=== PATIENT | male | born 1965 | race Caucasian/White ===

== ENCOUNTER 2023-01-25 08:48 | Inpatient (IN) | payer SELFPAY ==
[2023-01-25] VITALS (11 sets, daily range): BP systolic 107–169; BP diastolic 65–89; PULSE 75–89; RESP 12–24; TEMP 36.7–37.6; O2SAT 96–99; BMI 25.7; BMI 25.4
--- NOTE | 2023-01-25 09:01 | DI.RAD.S_ITS ---
PROCEDURE: XR TOE LT MIN 2V INDICATIONS: cellulitis vs. osteo great toe TECHNIQUE: 3 views of the left toe(s) acquired. COMPARISON: None. FINDINGS: Bones: No fractures or dislocations. No suspicious bony lesions. Soft tissues: There is soft tissue swelling at the great toe with soft tissue gas present. IMPRESSION: 1. Great toe cellulitis, possibly with a gas-forming organism. 2. No plain film evidence of osteomyelitis. Comments: Recommend follow-up imaging to ensure that the soft tissue gas does not propagate proximally. Left foot MRI with without contrast may be helpful if suspect acute osteomyelitis. Dictated by: Yosi Rivera M.D. on 01/25/2023 at 9:54 Approved by: Yosi Rivera M.D. on 01/25/2023 at 9:56
--- NOTE | 2023-01-25 09:07 | ED_ITS ---
HPI - Extremity Injury (Lower) General Chief Complaint: Extremity Injury, Lower Stated Complaint: Swollen lt big toe after firewood dropped on it Time Seen by Provider: 01/25/23 09:00 Source: patient Mode of arrival: Ambulatory History of Present Illness HPI Narrative: 58-year-old male former smoker with history of what sounds like newly, and previously undiagnosed or treated diabetes presents with rapidly worsening infection of his left great toe. He was initially injured about 90 days ago when carrying firewood he dropped a piece on his toe and injured it. He had been having some occasional redness and pain but over the past week or so it has rapidly worsened. He now has significantly worse pain, drainage, foul-smelling great toe with purulent drainage, redness of his forefoot. He denies fever but states he has had some chills. He denies any dizziness, weakness or lightheadedness. He denies runny nose, sore throat or cough. Related Data Home Medications Medication Instructions Recorded Confirmed metformin 500 mg tablet 500 mg PO BID 01/25/23 01/25/23 Allergies Allergy/AdvReac Type Severity Reaction Status Date / Time No Known Drug Allergies Allergy Verified 01/25/23 08:58 Review of Systems Review of Systems Narrative: GENERAL: Denies chills, fatigue, malaise, fever, sweats. HEENT: Denies sinus pain, ear pain, sore throat, difficulty swallowing, dizziness. RESPIRATORY: Denies dyspnea, cough, wheezing, hemoptysis, sputum. CARDIOVASCULAR: Denies chest pain, palpitations, orthopnea, edema, GASTROINTESTINAL: Denies nausea, vomiting, abdominal pain, diarrhea, constipation, melena. : Denies dysuria, frequency, incontinence, hematuria, urinary retention. MUSCULOSKELETAL: see HPI SKIN: Denies rash, skin lesions, or other NEUROLOGIC: Denies weakness, headache, numbness, change in speech, confusion, seizures, incoordination. PSYCHIATRIC: No concerning psychosocial issues. 12 point review of systems is negative except for those stated above Patient History Social History Smoking Status: Former smoker Smoking Status: Former smoker alcohol intake frequency: holidays/special occasions only Alcohol type: beer Substance Use Type: marijuana Exam Narrative Exam Narrative: GENERAL: [58] year old patient appears stated age. Well-developed patient, in mild distress. HEAD: Atraumatic. Normocephalic. EYES: Pupils equal round and reactive. Extraocular motions intact. No scleral icterus. No injection or drainage. ENT: Nose without bleeding, purulent drainage. Throat without erythema, tonsillar hypertrophy or exudate. Airway patent. NECK: Trachea midline. Non tender CARDIOVASCULAR: Regular rate and rhythm without murmurs, gallops, or rubs. RESPIRATORY: Clear to auscultation. Breath sounds equal bilaterally. No wheezes, rales, or rhonchi. GASTROINTESTINAL: Abdomen soft, non-tender, nondistended. EXTREMITIES: left great toe significantly erythematous and edematous, few areas of ulceration and skin breakdown with foul-smelling purulent discharge, largely insensate, no bone exposure, erythema and swelling extend into dorsum and forefoot BACK: Nontender without deformity or crepitance. No flank tenderness. NEURO: AOx3. SKIN: No rash or erythema of visible areas Initial Vital Signs Initial Vital Signs: Vital Signs Temperature 98.5 F 01/25/23 08:58 Pulse Rate 87 01/25/23 08:58 Respiratory Rate 24 01/25/23 08:58 Blood Pressure 169/89 H 01/25/23 08:58 Pulse Oximetry 99 01/25/23 08:58 Oxygen Delivery Method Room Air 01/25/23 08:58 Course Orders Ordered: ED Orders 01/25/23 09:01 XR foot LT min 3V Stat 01/25/23 09:05 Wound Culture and Gram Stain Stat 01/25/23 09:10 C-Reactive Protein Quant Stat Complete Blood Count AUTO DIFF Stat Comprehensive Metabolic Panel Stat Erythrocyte Sedimentation Rate Stat Magnesium Stat 01/25/23 10:34 A1C [Hemoglobin A1C% w Est Avg Glu] Urgent 01/25/23 10:35 MRSA (Nasal) PCR Stat Procalcitonin Urgent 01/25/23 10:39 Education, smoking cessation ONGOING 01/25/23 11:00 COVID19 -Nasal RAPID Stat 01/25/23 11:08 Blood Culture Stat 01/26/23 05:00 BMP [Basic Metabolic Panel] DAILY CBC Auto Diff [Complete Blood Count AUTO DIFF] DAILY 01/27/23 05:00 BMP [Basic Metabolic Panel] DAILY CBC Auto Diff [Complete Blood Count AUTO DIFF] DAILY 01/28/23 05:00 BMP [Basic Metabolic Panel] DAILY CBC Auto Diff [Complete Blood Count AUTO DIFF] DAILY Acetaminophen (Acetaminophen 325 Mg Tablet) 650 mg PO Q6H PRN PRN Reason: Fever/Mild Pain (1-3) Sodium Chloride (Normal Saline 0.9%) 1,000 mls @ 100 mls/hr IV CONT HOLLY Stop: 01/25/23 22:44 Piperacillin Sod/Tazobactam (Sod 3.375 gm/ Sodium Chloride) 100 mls @ 25 mls/hr IV Q8H HOLLY Vancomycin HCl/Dextrose (Vancomycin) 2,000 mg in 400 mls @ 200 mls/hr IV NOW ONE Stop: 01/25/23 13:29 Melatonin (Melatonin 3 Mg Tablet) 6 mg PO BEDTIME PRN PRN Reason: Insomnia Naloxone HCl (Naloxone 0.4 Mg/Ml Vial) 0.2 mg IV Q2MIN PRN PRN Reason: Opiate Reversal Oxycodone HCl (Oxycodone Ir 5 Mg Tablet) 5 mg PO Q4HR PRN PRN Reason: Pain, Moderate (4-6) Polyethylene Glycol (Polyethylene Glycol 3350 17 Gm Powd.Pack) 17 gm PO DAILY PRN PRN Reason: Constipation Sennosides (Sennosides 8.6 Mg Tablet) 8.6 mg PO BID PRN PRN Reason: Constipation Vancomycin HCl (Vancomycin Per Pharmacy) 1 request MISC NOW ONE Stop: 01/25/23 10:35 Discontinued Medications Diphtheria/Tetanus/Acell Pertussis (Tet,Diph,Pertuss(Acell),Vac/Pf 0.5 Ml Syringe) 0.5 ml IM .ONCE ONE Stop: 01/25/23 09:10 Last Admin: 01/25/23 09:51 Dose: 0.5 ml Documented By: KARINA Vancomycin HCl/Dextrose (Vancomycin) 2,000 mg in 400 mls @ 200 mls/hr IV Q24H HOLLY Piperacillin Sod/Tazobactam (Sod 4.5 gm/ Sodium Chloride) 100 mls @ 200 mls/hr IV NOW ONE Stop: 01/25/23 10:25 Consultations Consultation #1: discussed with orthopedist, happy with Da, will remain NPO, admission to hospitalist service Consultation #2: discussed with hospitalist, happy to accept on his service Vital Signs Vital signs: Vital Signs - 8 hr 01/25/23 08:58 Temperature 98.5 F Pulse Rate 87 Respiratory Rate 24 Blood Pressure 169/89 H Pulse Oximetry 99 Oxygen Delivery Method Room Air MDM - Extremity Injury (Lower) Lab Data 01/25/23 09:10 01/25/23 09:10 Labs: Lab Results 01/25/23 01/25/23 Range/Units 09:10 09:10 WBC 11.7 H (4.5-11.0) X10^3/uL RBC 4.98 (4.5-5.9) X10^6/uL Hgb 14.3 (13.5-17.5) g/dL Hct 41.7 (41-53) % MCV 83.7 (80-100) fL MCH 28.8 (26-34) PG MCHC 34.4 (30-36) % RDW 12.8 (11.6-14.8) % Plt Count 472 H (150-400) X10^3/uL Neut % (Auto) 76.9 H (50-75) % Lymph % (Auto) 13.1 L (25-40) % [place] % (Auto) 8.5 (3-14) % Eos % (Auto) 0.8 L (2-4) % Baso % (Auto) 0.7 (0-2) % Neut # (Auto) 9000 H (7520-7652) /uL Lymph # (Auto) 1500 (4002-4145) /uL [place] # (Auto) 1000 H (0-900) /uL Eos # (Auto) 100 (0-450) /uL Baso # (Auto) 100 (0-100) /uL ESR 23 H (0-15) MM/HR Sodium 133 L (137-145) mmol/L Potassium 4.3 (3.4-5.1) mmol/L Chloride 94 L (98-107) mmol/L Carbon Dioxide 27 (22-32) mmol/L BUN 13 (9-20) mg/dL Creatinine 0.55 L (0.66-1.25) mg/dL Estimated GFR > 60 (>60) mL/min BUN/Creatinine Ratio 23.6 H (6-22) Glucose 279 H (80-110) mg/dL Calcium 10.8 H (8.4-10.2) mg/dL Magnesium 1.7 (1.6-2.3) mg/dL Total Bilirubin 1.0 (0.2-1.3) mg/dL AST 38 (17-59) IU/L ALT 59 H (<50) IU/L Alkaline Phosphatase 405 H (38-126) U/L C-Reactive Protein 8.6 H (<1.0) mg/dL Total Protein 8.3 H (6.3-8.2) g/dL Albumin 4.4 (3.5-5.0) g/dL Globulin 3.9 (1.7-4.1) g/dL Albumin/Globulin Ratio 1.1 (1.0-2.8) Point of Care Testing Glucose POC 258 MDM Narrative Medical decision making narrative: newly diagnosed diabetic with rapidly worsening left great toe redness, swelling, drainage and foul smell. Inflammatory markers and white blood cell count are elevated, patient is hemodynamically stable without much in the way systemic symptoms. Imaging does suggest an infectious process, possibly from gas forming organism. Given rapid onset patient will require hospitalization for IV antibiotics and possible surgical intervention. Patient has been NPO to foods since last night, NPO to coffee with cream since 0730 this morning. He and family understand diagnosis and plan Discharge Plan Departure Patient Disposition: Admitted As Inpatient Clinical Impression: Abscess of great toe of left foot, Osteomyelitis of great toe of left foot Admit Date/Time: 01/25/23 10:34 Admit Provider: Alcides Higuera
[2023-01-25 09:22] LABS: Add Manual Diff / Slide Review NO; Basophils Absolute Auto 100 /uL (0-100); Basophils Percent Auto 0.7 % (0-2); Eosinophils Absolute Auto 100 /uL (0-450); Eosinophils Percent Auto 0.8 % (2-4); Hematocrit 41.7 % (41-53); Hemoglobin 14.3 g/dL (13.5-17.5); Lymphocytes Absolute Auto 1500 /uL (1100-4500); Lymphocytes Percent Auto 13.1 % (25-40); Mean Corpuscular HGB Conc 34.4 % (30-36); Mean Corpuscular Hemoglobin 28.8 PG (26-34); Mean Corpuscular Volume 83.7 fL (80-100); Monocytes Absolute Auto 1000 /uL (0-900); Monocytes Percent Auto 8.5 % (3-14); Neutrophils Absolute Auto 9000 /uL (1500-7000); Neutrophils Percent Auto 76.9 % (50-75); Platelet Count 472 X10^3/uL (150-400); Red Blood Cell Count 4.98 X10^6/uL (4.5-5.9); Red Cell Distribution Width 12.8 % (11.6-14.8); White Blood Cell Count 11.7 X10^3/uL (4.5-11.0)
[2023-01-25 09:40] LABS: Erythrocyte Sedimentation Rate 23 MM/HR (0-15)
[2023-01-25 09:41] LABS: HEMOLYSIS < 15 (0-50); Potassium 4.3 mmol/L (3.4-5.1)
[2023-01-25 09:44] LABS: Alanine Aminotransferase 59 IU/L (<50); Albumin 4.4 g/dL (3.5-5.0); Albumin Globulin Ratio 1.1 (1.0-2.8); Alkaline Phosphatase 405 U/L (38-126); Aspartate Aminotransferase 38 IU/L (17-59); BUN Creatinine Ratio 23.6 (6-22); Blood Urea Nitrogen 13 mg/dL (9-20); C-Reactive Protein Quant 8.6 mg/dL (<1.0); Calcium 10.8 mg/dL (8.4-10.2); Carbon Dioxide 27 mmol/L (22-32); Chloride 94 mmol/L (98-107); Estimated Glomerular Filt Rate > 60 mL/min (>60); Globulin 3.9 g/dL (1.7-4.1); Glucose 279 mg/dL (80-110); Magnesium 1.7 mg/dL (1.6-2.3); Sodium 133 mmol/L (137-145); Total Protein 8.3 g/dL (6.3-8.2)
[2023-01-25] MEDS: TET,DIPH,PERTUSS(ACELL),VAC/PF 0.5 ML SYRINGE IM (09:51)
--- NOTE | 2023-01-25 11:16 | PC.NURSE ---
Lab is still attempting to get blood cultures. report called to floor. JAY Knapp will hang IV antibiotics
[2023-01-25 11:31] LABS: COVID19 -Nasal RAPID Negative (Negative)
[2023-01-25] MEDS: PIPERACILLIN/TAZO 4.5 GM in SODIUM CHLORIDE 0.9% 100 ML IV (11:43)
[2023-01-25] MEDS: SODIUM CHLORIDE 0.9% 1,000 ML 100 ML IV (11:43)
--- NOTE | 2023-01-25 12:21 | PC.NURSE ---
Addendum entered by Ludmila Martinez R.N. 01/25/23 12:21: LEFT GREAT TOE Original Note:
--- NOTE | 2023-01-25 12:31 | PM.HP.1 ---
History of Present Illness History of Present Illness Chief complaint: Swollen lt big toe after firewood dropped on it Narrative: Jim Blanco is a 58-year-old male with past medical history of poorly controlled type 2 diabetes, hypertension, and former smoker who presents for worsening infection of left great toe. Patient says he dropped a large log on his toe about a month ago and has had worsening infection and drainage in the toe ever since. He notes loss of sensation in his feet. He used to take metformin for his diabetes, and had lab work done last month which showed an A1c of >14% and his PCP put him back on metformin. He has never taken insulin. Patient denies CP, SOB, abd pain, diarrhea, fever, chills or rigors. [facility] Social History household members: significant other Smoking Status: Former smoker alcohol intake: current Meds Home Medications and Allergies Home Medications Medication Instructions Recorded Confirmed Type metformin 500 mg tablet 500 mg PO BID 01/25/23 01/25/23 History Allergies Allergy/AdvReac Type Severity Reaction Status Date / Time No Known Drug Allergies Allergy Verified 01/25/23 08:58 Review of Systems Review of Systems Narrative: All other systems reviewed with the patient and are negative unless otherwise stated. Exam Vital Signs (past 8 hours): - 01/25/23 08:58 01/25/23 11:10 01/25/23 11:25 Temperature 98.5 F 99.7 F H Pulse Rate 87 81 84 Respiratory Rate 24 18 Blood Pressure 169/89 H 149/85 H 155/83 H Pulse Oximetry 99 96 98 Oxygen Delivery Method Room Air Room Air Oxygen Flow Rate 0 Oxygen Delivery Method Room Air Oxygen Flow Rate 0 Narrative Exam Narrative: GEN: no acute distress HEENT: moist mucous membranes, PERRL NECK: trachea midline, no JVD CV: regular rate and rhythm, no murmurs PULM: clear bilaterally ABD: soft, nontender, nondistended, no organomegaly EXT: warm and well perfused with no edema, left great toe with malodorous purulent drainage from wound on medial side NEURO: awake, alert, oriented, no focal deficits Objective Labs 01/25/23 09:10 01/25/23 09:10 Labs: Laboratory Results - last 24 hr 01/25/23 01/25/23 01/25/23 09:10 09:10 10:35 WBC 11.7 H RBC 4.98 Hgb 14.3 Hct 41.7 MCV 83.7 MCH 28.8 MCHC 34.4 RDW 12.8 Plt Count 472 H Neut % (Auto) 76.9 H Lymph % (Auto) 13.[address] [place] % (Auto) 8.5 Eos % (Auto) 0.8 L Baso % (Auto) 0.7 Neut # (Auto) 9000 H Lymph # (Auto) 1500 [place] # (Auto) 1000 H Eos # (Auto) 100 Baso # (Auto) 100 ESR 23 H Sodium 133 L Potassium 4.3 Chloride 94 L Carbon Dioxide 27 BUN 13 Creatinine 0.55 L Estimated GFR > 60 BUN/Creatinine Ratio 23.6 H Glucose 279 H Calcium 10.8 H Magnesium 1.7 Total Bilirubin 1.0 AST 38 ALT 59 H Alkaline Phosphatase 405 H C-Reactive Protein 8.6 H Total Protein 8.3 H Albumin 4.4 Globulin 3.9 Albumin/Globulin Ratio 1.1 Procalcitonin 0.20 SARS-CoV-2 (PCR) 01/25/23 11:00 WBC RBC Hgb Hct MCV MCH MCHC RDW Plt Count Neut % (Auto) Lymph % (Auto) [place] % (Auto) Eos % (Auto) Baso % (Auto) Neut # (Auto) Lymph # (Auto) [place] # (Auto) Eos # (Auto) Baso # (Auto) ESR Sodium Potassium Chloride Carbon Dioxide BUN Creatinine Estimated GFR BUN/Creatinine Ratio Glucose Calcium Magnesium Total Bilirubin AST ALT Alkaline Phosphatase C-Reactive Protein Total Protein Albumin Globulin Albumin/Globulin Ratio Procalcitonin SARS-CoV-2 (PCR) Negative Assessment & Plan Assessment & Plan narrative: # left great toe diabetic foot cellulitis with abscess -foot x-ray shows cellulitis of left great toe with presence of gas -left foot MRI ordered to rule out osteomyelitis -Dr. Porfirio sorensen consulted and will possibly take to OR on 01/25 -keep NPO -continue vanc and Zosyn to cover MRSA and Pseudomonas -follow-up wound cultures # type 2 diabetes -previously poorly controlled as A1c greater than 14% -recheck A1c -hold home metformin -med-dose sliding scale insulin -diabetes education consult # hypertension -no formal diagnosis and patient not on blood pressure medications -continue to monitor and consider starting blood pressure medication on discharge if persistently elevated Code status is full code. COVID negative. DVT prophylaxis with SCDs. Proxy is partner Erinn. I have reviewed home meds and used all available resources to reconcile the home meds. This patient will be admitted as inpatient and will require greater than 2 midnights of hospital time to treat left diabetic toe infection. Quality VTE Deep Vein Thrombosis/Pulmonary Embolism Present on Admission: No
[2023-01-25] MEDS: VANCOMYCIN 2,000 MG/400 ML PIGGYBACK 200 MG IV (12:39)
[2023-01-25] MEDS: PANTOPRAZOLE 40 MG VIAL 20 MG IV (12:39)
[2023-01-25 13:21] LABS: MRSA (Nasal) PCR Not Detected (Not Detect)
--- NOTE | 2023-01-25 13:49 | DI.MRI.S_ITS ---
P tear ROCEDURE: MR FOOT LT WO/W CON INDICATIONS: left diabetic 1st toe infection, possible osteo TECHNIQUE: Noncontrast sagittal T1 spin echo and T2 fast spin echo with fat saturation, long-axis T1 spin echo and T2 fast spin echo with fat saturation; short-axis T1 spin echo, proton density fast spin echo, and T2 fast spin echo with fat saturation through the forefoot. Post-contrast short axis, long axis, and sagittal T1 spin echo with fat saturation through the forefoot. COMPARISON: [facility], CR, XR TOE LT MIN 2V, 01/25/2023, 9:19. FINDINGS: Image quality: Good Bones: At the area of clinical concern at the great toe, there is loss of T1 signal surrounding the interphalangeal joint, with associated enhancement and edema (7/10) extending beyond the T1 signal abnormality Scattered degenerative changes are seen elsewhere. A small, nonaggressive appearing T2 hyperintense lesion is seen at the proximal 5th metatarsal shaft, indeterminate, possibly enchondroma or ganglion. Soft tissues: Soft tissue edema and swelling throughout the foot, particularly at the 1st toe. There is more focal involvement at the plantar/flexor tendons underlying the 1st proximal phalanx and interphalangeal joint. Edema of the plantar musculature could represent myositis vs. diabetic/denervation changes. IMPRESSION: 1st toe osseous and soft tissue edema and enhancement throughout and surrounding the phalanges, compatible with reported infection. Smaller central focus of osteomyelitis is seen at the 1st proximal phalangeal head and base of the distal phalanx surrounding the joint. Dictated by: Philip Koroma M.D. on 01/25/2023 at 15:47 Approved by: Philip Koroma M.D. on 01/25/2023 at 15:54
[2023-01-25] MEDS: INSULIN LISPRO 100 UNIT/ML 3ML VIAL SUBCUT ×2 (15:54→20:21)
--- NOTE | 2023-01-25 16:18 | SUR.OPER ---
Supine on padded OR bed, head on pillow, arms secured on padded arm boards at <90 degrees abduction, legs uncrossed, safety belt at thigh, tape over blanket over lower legs. Left lower leg prepped and draped in field.
--- NOTE | 2023-01-25 18:01 | P.CONS_ITS ---
History of Present Illness Consult details Date Patient Seen: 01/25/23 Time Patient Seen: 17:30 Chief complaint: Swollen lt big toe after firewood dropped on it Narrative: 58-year-old gentleman with a history swelling and drainage to left big toe. Patient states started by him dropping some firewood on it and that seemed cause things get flared up. Started to notice more and more swelling then eventually drainage. Patient is also diabetic. Due to the amount of swelling and purulent drainage patient was seen in the emergency room today and was admitted to the hospitalist for IV antibiotics. Meds Home Medications and Allergies Home Medications Medication Instructions Recorded Confirmed Type metformin 500 mg tablet 500 mg PO BID 01/25/23 01/25/23 History Allergies Allergy/AdvReac Type Severity Reaction Status Date / Time No Known Drug Allergies Allergy Verified 01/25/23 08:58 Exam Vital Signs (past 8 hours): - 01/25/23 11:10 01/25/23 11:25 01/25/23 16:31 Temperature 99.7 F H 99.1 F Pulse Rate 81 84 89 Respiratory Rate 18 18 Blood Pressure 149/85 H 155/83 H 129/78 Pulse Oximetry 96 98 97 Oxygen Delivery Method Room Air Oxygen Flow Rate 0 Oxygen Delivery Method Room Air Oxygen Flow Rate 0 Narrative Exam Narrative: On exam patient has significant swelling in soft tissue damage to the great toe. There is areas of drainage to the lateral aspect of the toe. Some general cellulitis to the foot but the rest of the toe seemed to be free of any swelling drainage or abscess formation. Tenderness to palpation to the great toe and able to express purulence from the lateral aspect of the great toe. Nontender to palpation the 2nd through 5th toes. Objective Labs 01/25/23 09:10 01/25/23 09:10 Labs: Laboratory Results - last 24 hr 01/25/23 01/25/23 01/25/23 09:10 09:10 10:35 WBC 11.7 H RBC 4.98 Hgb 14.3 Hct 41.7 MCV 83.7 MCH 28.8 MCHC 34.4 RDW 12.8 Plt Count 472 H Neut % (Auto) 76.9 H Lymph % (Auto) 13.1 L [place] % (Auto) 8.5 Eos % (Auto) 0.8 L Baso % (Auto) 0.7 Neut # (Auto) 9000 H Lymph # (Auto) 1500 [place] # (Auto) 1000 H Eos # (Auto) 100 Baso # (Auto) 100 ESR 23 H Sodium 133 L Potassium 4.3 Chloride 94 L Carbon Dioxide 27 BUN 13 Creatinine 0.55 L Estimated GFR > 60 BUN/Creatinine Ratio 23.6 H Glucose 279 H Calcium 10.8 H Magnesium 1.7 Total Bilirubin 1.0 AST 38 ALT 59 H Alkaline Phosphatase 405 H C-Reactive Protein 8.6 H Total Protein 8.3 H Albumin 4.4 Globulin 3.9 Albumin/Globulin Ratio 1.1 Procalcitonin 0.20 Nasal Screen MRSA (PCR) SARS-CoV-2 (PCR) 01/25/23 01/25/23 11:00 12:00 WBC RBC Hgb Hct MCV MCH MCHC RDW Plt Count Neut % (Auto) Lymph % (Auto) [place] % (Auto) Eos % (Auto) Baso % (Auto) Neut # (Auto) Lymph # (Auto) [place] # (Auto) Eos # (Auto) Baso # (Auto) ESR Sodium Potassium Chloride Carbon Dioxide BUN Creatinine Estimated GFR BUN/Creatinine Ratio Glucose Calcium Magnesium Total Bilirubin AST ALT Alkaline Phosphatase C-Reactive Protein Total Protein Albumin Globulin Albumin/Globulin Ratio Procalcitonin Nasal Screen MRSA (PCR) Not detected SARS-CoV-2 (PCR) Negative PFSH Social History household members: significant other Tobacco & Substance Use Smoking Status: Former smoker alcohol intake: current Assessment & Plan Assessment & Plan narrative: Patient with a chronic infection involving the left toe. Patient also had an showing signs of some possible osteo changes concerning for osteomyelitis. Due to these findings would recommend an irrigation and debridement of the toe followed by continued IV antibiotics. Did discuss with the patient that if things do not resolve he might need a amputation of the 1st toe. 1st we will see if we can get things to heal with a extensive irrigation and debridement. All of his questions and concerns were answered to his full satisfaction. The risk, benefits, alternatives, possible complications, operative course, and postop outcomes were discussed. Complications including but not limiting to bleeding, infection, fracture, nerve injury, continued pain postoperatively or instability postoperatively were discussed in detail. Medical complications including but not limited to deep venous thrombosis event, anesthesia complications with excessive bleeding, vascular events or cardiac events and other possible complications were discussed in detail. Need for postoperative rehabilitation and anticipated hospital stay and clinical course were discussed in detail. Patient acknowledges understanding and elects to proceed with surgery.
--- NOTE | 2023-01-25 18:01 | PM.PREOP ---
Pre-operative Note Interval Note History & Physical reviewed/Exam performed by Physician: Yes Changes to H&P: No
[2023-01-25] MEDS: BUPIVACAINE 0.25% (PF) 30 ML, EPINEPHrine 0.15 MG INJ (18:50)
--- NOTE | 2023-01-25 19:11 | P.OP_ITS ---
Operative Date/Time/Diagnoses Date of procedure: 01/25/23 Time of procedure: 18:30 Pre-op diagnosis: Left great toe infection Post-op diagnosis: same Procedure & Clinicians Procedure: Irrigation and debridement of a left great toe infection Same procedure as scheduled: Yes Indications: Left great toe infection Surgeon: Davi Monroy Click Yes if Unassisted: Yes Anesthesia Type: MAC +/- Operative Notes Findings: Infection involving the big toe both dorsally and plantarly. Purulent material both dorsal and volar to the bony surface. Necrotic tissue present as well. Mainly involving the distal and proximal phalanx. Closure Type: primary Specimen(s): other (Swab and wound soft tissue sent for cultures and sensitivity) Estimated Blood Loss (mL): 5 Tourniquet time (min): 22 Procedure in detail: Date of service, patient was met in the holding area where his operative site was signed and witnessed by the OR staff. The surgery was once again discussed with the patient and any remaining questions or concerns he had were answered fully. Patient was taken back to the operating theater placed on the operating table in a supine position and great care was taken to ensure that all bony prominences were appropriately padded. Well-padded tourniquet was placed along the calf. Time-out was performed verifying patient's name, procedure, and operative site. The left leg was prepped and draped in the normal sterile fashion. The leg was elevated for exsanguination and the tourniquet was turned up to 250 mmHg. Lateral incision was made starting at the tip of the toe going down to the metatarsal. There was active purulent drainage. This was swabbed and sent for cultures and sensitivities. Deep knife was used to continue sharp dissection down to the bone. Then pickup and tenotomy scissors were used to dissect both dorsally and plantarly of the distal and proximal phalanx. There was more purulent material more so plantarly than dorsally. [place] was then used to debride the necrotic soft tissue both plantarly and dorsally. Fifteen blade was used to excise the skin around the area purulent drainage to get down to more healthy skin tissue. Extensive debridement was used using the rongeur trying to remove as much degenerative tissue as possible. Once we felt like we had an adequate debridement the wound was then copiously irrigated using pulse lavage. This was then followed by bulb syringe lavage. Once we felt like we had adequate cleaned it of the wound bed it was packed with iodoform and then loosely closed. The foot was then cleaned, dried, and dressed and patient was taken to the PACU in stable condition Complications: none Post-operative Condition: stable Disposition: Acute Care Plan for aftercare: Patient will continue with his IV antibiotics. We will need a wound check in 24-48 hours. Depending on how well things are healing and how well he is respo nding to antibiotics might require an additional washout if they are still signs of active infection.
[2023-01-25] MEDS: VANCOMYCIN 1,250 MG/250 ML PIGGYBACK 250 MG IV (20:13)
[2023-01-25] MEDS: DOCUSATE 100 MG CAPSULE PO (20:13)
[2023-01-25] MEDS: LACTATED RINGERS 1,000 ML 125 ML IV (20:14)
[2023-01-25] MEDS: METFORMIN HCL 500 MG TABLET PO (20:14)
[2023-01-26] MEDS: PIPERACILLIN/TAZO 3.375 GM in SODIUM CHLORIDE 0.9% 100 ML IV ×2 (00:31→08:16)
[2023-01-26 04:27] LABS: Labcorp Hemoglobin (Hb) A1c 12.1 % (4.8-5.6)
[2023-01-26] MEDS: VANCOMYCIN 1,250 MG/250 ML PIGGYBACK 250 MG IV (04:36)
[2023-01-26 04:50] VITALS: BP 131/78; PULSE 73; RESP 20; TEMP 37.4; O2SAT 96
[2023-01-26 06:14] LABS: Add Manual Diff / Slide Review NO; Basophils Absolute Auto 0 /uL (0-100); Basophils Percent Auto 0.3 % (0-2); Eosinophils Absolute Auto 100 /uL (0-450); Eosinophils Percent Auto 0.9 % (2-4); Hematocrit 37.4 % (41-53); Hemoglobin 12.5 g/dL (13.5-17.5); Lymphocytes Absolute Auto 1600 /uL (1100-4500); Lymphocytes Percent Auto 13.1 % (25-40); Mean Corpuscular HGB Conc 33.5 % (30-36); Mean Corpuscular Hemoglobin 27.7 PG (26-34); Mean Corpuscular Volume 82.5 fL (80-100); Monocytes Absolute Auto 1300 /uL (0-900); Monocytes Percent Auto 10.5 % (3-14); Neutrophils Absolute Auto 9300 /uL (1500-7000); Neutrophils Percent Auto 75.2 % (50-75); Platelet Count 423 X10^3/uL (150-400); Red Blood Cell Count 4.54 X10^6/uL (4.5-5.9); White Blood Cell Count 12.4 X10^3/uL (4.5-11.0)
[2023-01-26 06:15] LABS: BUN Creatinine Ratio 19.7 (6-22); Blood Urea Nitrogen 13 mg/dL (9-20); Calcium 9.4 mg/dL (8.4-10.2); Carbon Dioxide 26 mmol/L (22-32); Chloride 97 mmol/L (98-107); Estimated Glomerular Filt Rate > 60 mL/min (>60); Glucose 279 mg/dL (80-110); HEMOLYSIS < 15 (0-50); Potassium 4.4 mmol/L (3.4-5.1); Sodium 130 mmol/L (137-145)
[2023-01-26] MEDS: METFORMIN HCL 500 MG TABLET PO (08:17)
[2023-01-26] MEDS: DOCUSATE 100 MG CAPSULE PO ×2 (08:17→21:00)
[2023-01-26] MEDS: INSULIN LISPRO 100 UNIT/ML 3ML VIAL SUBCUT ×4 (08:23→21:01)
--- NOTE | 2023-01-26 09:26 | P.PN_ITS ---
Subjective Subjective Interval history: Patient underwent OR washout of left great toe cellulitis with ortho yesterday. A1c came back at 12%. Court Officer spent lots of time today educating about diabetes management. Wound culture growing Group B strep. Exam Vital Signs (past 8 hours): - 01/26/23 04:50 01/26/23 07:50 Temperature 99.3 F Pulse Rate 73 Respiratory Rate 20 Blood Pressure 131/78 Pulse Oximetry 96 Oxygen Flow Rate 0 0 Oxygen Delivery Method Room Air Oxygen Flow Rate 0 Narrative Exam Narrative: GEN: no acute distress HEENT: moist mucous membranes, PERRL NECK: trachea midline, no JVD CV: regular rate and rhythm, no murmurs PULM: clear bilaterally ABD: soft, nontender, nondistended, no organomegaly EXT: warm and well perfused with no edema, left foot wrapped in post-surgical gauze NEURO: awake, alert, oriented, no focal deficits Objective Labs 01/26/23 05:38 01/26/23 05:38 Labs: Laboratory Results - last 24 hr 01/25/23 01/25/23 01/25/23 09:10 09:10 10:35 WBC RBC Hgb Hct MCV MCH MCHC RDW Plt Count Neut % (Auto) Lymph % (Auto) [place] % (Auto) Eos % (Auto) Baso % (Auto) Neut # (Auto) Lymph # (Auto) [place] # (Auto) Eos # (Auto) Baso # (Auto) ESR 23 H Sodium 133 L Potassium 4.3 Chloride 94 L Carbon Dioxide 27 BUN 13 Creatinine 0.55 L Estimated GFR > 60 BUN/Creatinine Ratio 23.6 H Glucose 279 H Hgb A1c (Ref Lab) Calcium 10.8 H Magnesium 1.7 Total Bilirubin 1.0 AST 38 ALT 59 H Alkaline Phosphatase 405 H C-Reactive Protein 8.6 H Total Protein 8.3 H Albumin 4.4 Globulin 3.9 Albumin/Globulin Ratio 1.1 Procalcitonin 0.20 Nasal Screen MRSA (PCR) SARS-CoV-2 (PCR) 01/25/23 01/25/23 01/25/23 11:00 12:00 12:10 WBC RBC Hgb Hct MCV MCH MCHC RDW Plt Count Neut % (Auto) Lymph % (Auto) [place] % (Auto) Eos % (Auto) Baso % (Auto) Neut # (Auto) Lymph # (Auto) [place] # (Auto) Eos # (Auto) Baso # (Auto) ESR Sodium Potassium Chloride Carbon Dioxide BUN Creatinine Estimated GFR BUN/Creatinine Ratio Glucose Hgb A1c (Ref Lab) 12.1 H Calcium Magnesium Total Bilirubin AST ALT Alkaline Phosphatase C-Reactive Protein Total Protein Albumin Globulin Albumin/Globulin Ratio Procalcitonin Nasal Screen MRSA (PCR) Not detected SARS-CoV-2 (PCR) Negative 01/26/23 01/26/23 05:38 05:38 WBC 12.4 H RBC 4.54 Hgb 12.5 L Hct 37.4 L MCV 82.5 MCH 27.7 MCHC 33.5 RDW 13.0 Plt Count 423 H Neut % (Auto) 75.2 H Lymph % (Auto) 13.1 L [place] % (Auto) 10.5 Eos % (Auto) 0.9 L Baso % (Auto) 0.3 Neut # (Auto) 9300 H Lymph # (Auto) 1600 [place] # (Auto) 1300 H Eos # (Auto) 100 Baso # (Auto) 0 ESR Sodium 130 L Potassium 4.4 Chloride 97 L Carbon Dioxide 26 BUN 13 Creatinine 0.66 Estimated GFR > 60 BUN/Creatinine Ratio 19.7 Glucose 279 H Hgb A1c (Ref Lab) Calcium 9.4 Magnesium Total Bilirubin AST ALT Alkaline Phosphatase C-Reactive Protein Total Protein Albumin Globulin Albumin/Globulin Ratio Procalcitonin Nasal Screen MRSA (PCR) SARS-CoV-2 (PCR) [facility] Social History household members: significant other Smoking Status: Former smoker alcohol intake: current Assessment & Plan Assessment & Plan narrative: # left great toe diabetic foot cellulitis with abscess s/p OR washout on 01/25 -foot x-ray shows cellulitis of left great toe with presence of gas -left foot MRI ordered to rule out osteomyelitis -Dr. Porfirio sorensen consulted and will possibly take to OR on 01/25 -wound culture growing Group B strep, stopped Vanc and changed zosyn to rocephin 2g daily -wound check in 24-48hrs by ortho to determine if back to OR for further debridement # type 2 diabetes -previously poorly controlled as A1c greater than 14% -A1c 12% -hold home metformin -med-dose sliding scale insulin -diabetes education consulted and met with patient -will likely dc home on basal insulin plus metformin Code status is full code. COVID negative. DVT prophylaxis with SCDs. Proxy is partner Erinn. I have reviewed home meds and used all available resources to reconcile the home meds. Dispo: Home in 1-2 days pending wound check and need for repeat for OR washout or not. Quality VTE Deep Vein Thrombosis/Pulmonary Embolism Present on Admission: No
--- NOTE | 2023-01-26 11:50 | CM.DANOTE ---
DCP: Case received, EMR reviewed and met with patient. Introduced self and role. Was able to obtain information to complete DCP assessment. DC assessment completed with information currently available. Patient is a 58 year old male who admitted yesterday morning to the care of the hospitalist team. PCP: Has gone to [facility], in [place]. Payer: uncertain if he is current with [employer]. Counselors are attempting to get in touch with them, does not qualify for Pay4later. He was given a joesph application. Patient came to the hospital via private vehicle secondary to having worsening infection of his left great toe. Notes indicate that about 90 days ago, patient was carrying firewood, dropped a piece on his toe, and injured it. Patient had been having some occasional redness, and pain, and had worsened over the past week. Notes also indicated that the extremity was foul-smelling, with purulent drainage. osteomyletis noted. Patient is poorly controlled type 2 diabetic. He had I&D yesterday by ortho, could potentially need another. At this time, is unclear as to how long that patient will need to be on IV ABO. Met with patient in his room. He is alert and oriented, his foot is percy wrapped. Confirmed that he resides in [place] with partner, Erinn Ayers. He is independent at his baseline. He was working at [employer]. Asked him about a primary provider. He has gone to [facility] in clinic in [place] by [employer]. He has seen someone, but can't remember the name. Asked him about his insurance, he did indicate that his only insurance is [employer]. Discussed his diabetes, asked him if he has a glucometer to check his blood sugars, indicated that he just purchased one. After speaking to patient, noted in collection notes that joesph application was given to patient, for unclear if patient is still covered by his [employer]. He makes too much for [place] insurance. Admission counselors are following up with insurance to see if it is still active. Barrier will be if he is not insured, and needs adjunct faculty for medical terminology IV ABO. P: DCP to continue to follow. Will have to follow closely to see if he will need extended IV ABO secondary to his osteomylitis. He could possibly have another ortho surgery. Nancy Flores RN/Director Advertising Discharge Planning/Care Management Discharge Assessment Start: 01/26/23 11:44 Freq: Status: Active Protocol: Document 01/26/23 11:44 (Rec: 01/26/23 11:46 [id number]) Discharge Planning Assessment Assigned Forensic Locksmith Nancy Flores RN/Director Advertising Advance Directives? No Advance Directives on File No History Provided By Patient,Medical Record Prior Living Arrangements House Household Members significant other Type of transporation used prior to Drives own vehicle admit Independent with ADL's Yes Is patient alert and oriented? Yes Caregiver for Another No Comment Will have to see if he needs adjunct faculty for medical terminology antibiotics. Patient has also been noncompliant with diabetes. Discharge Plan Home Transportation Arrangement Spouse Referrals Initiated Other Additional Comment Will have to see how long he will need IV ABO. Whiteboard Updated in Patient Room with Yes name and ext. # of Forensic Locksmith Review Status In Process Next Review Type Continued Stay Review Document 01/26/23 11:50 VM (Rec: 01/26/23 11:50 [id number]) Discharge Planning Assessment Assigned Forensic Locksmith Nancy Flores RN/Director Advertising Advance Directives? No Advance Directives on File No History Provided By Patient,Medical Record Prior Living Arrangements House Household Members significant other Type of transporation used prior to Drives own vehicle admit Independent with ADL's Yes Is patient alert and oriented? Yes Caregiver for Another No Comment Will have to see if he needs adjunct faculty for medical terminology antibiotics. Patient has also been noncompliant with diabetes. Discharge Plan Home Transportation Arrangement Spouse Referrals Initiated Other Additional Comment Will have to see how long he will need IV ABO. Whiteboard Updated in Patient Room with Yes name and ext. # of Forensic Locksmith Review Status In Process Next Review Type Continued Stay Review
[2023-01-26 12:17] VITALS: BP 129/73; PULSE 77; RESP 16; TEMP 37.1; O2SAT 97
[2023-01-26] MEDS: cefTRIAXone 1,000 MG in SODIUM CHLORIDE 0.9% 100 ML 200 MG IV (13:53)
[2023-01-26] MEDS: LACTATED RINGERS 1,000 ML 125 ML IV ×2 (13:53→22:52)
[2023-01-26 15:24] VITALS: BP 122/69; PULSE 79; RESP 16; TEMP 36.9; O2SAT 98
--- NOTE | 2023-01-26 16:38 | DIET.CONS ---
Dietary Consultation Note Admission Date: 01/25/2023 10:34 Assessment: 58y M admitted for T2DM related left toe infection s/p I&D with ortho referred to nutrition for DM education. Pt is currently underinsured. Pt diagnosed with T2DM several years ago, does not remember A1c, was put on 500mg metformin bid. was able to get FBGs down to 110-120 range, was due for f/u with PCP and missed appointment, ran out of metformin so stopped taking it. Pt recently paid out of pocket to get A1c tested at walk-in clinic (A1c >14) was started on 500mg metformin bid which pt continues to take. Pt started to make some dietary changes, however, pt without guidance so making changes such as switching to SF beverages which help to improve BGs but then other changes such as changing to gluten free bread which do not benefit BGs and may actually worsen numbers. Pt purchased glucometer and is checking FBGs which are consistently in the 250-350 range. Pt has not seen value <200 though he said with the initiation of metformin, they are trending down some. Pts A1c upon admission was 12.1 indicating small improvement in glucose management. 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 Both desire education to better manage pts BGs and avoid further hospitalizations. Food Recall (prior to metformin initiation): B: [employer] lamp food breakfast sandwich with 20oz iced caramel latte L: [employer] nut/cheese/dried fruit blend or a sandwich with glass whole milk Sn: 32oz big gulp slurpee on drive home D: pizza, mac n cheese, pt sometimes grills or cooks but S.O. not a cook so often reliant on ready made meals Sn: chips/crackers before bed Since initiation of metformin, pt has cut out sugar sweetened beverages (latte and slurpee) Pt endorses polydipsia and polyuria, especially nocturnally. Hospitalist considering addition of basal insulin upon d/c for elevated FBGs. Ht: 187.96 cm Wt: 89.9 kg BMI: 25.4 Last BM: 01/26/23 (01/26/23 07:48) MNA: 14 Magan Score: 23 Diet: 01/25/23 Dinner Carbohydrate Consistent Diet Diet Modifications: Carbohydrate level: Small (2 CHO) Reflex DM orders: No Nutrition Percent Meal Consumed 100% 01/26/23 13:00 Percent Meal Consumed 100% 01/26/23 09:01 Labs: RBC 4.54 X10^6/uL (4.5-5.9) 01/26/23 05:38 Hgb 12.5 g/dL (13.5-17.5) L 01/26/23 05:38 Hct 37.4 % (41-53) L 01/26/23 05:38 Creatinine 0.66 mg/dL (0.66-1.25) 01/26/23 05:38 Nutrition Diagnosis: altered nutrition related laboratory values (A1c) r/t endocrine dysfunction, barriers to healthcare and undesirable food choices aeb A1c 12.1, pt admitted for T2DM toe infection requiring I&D, diet recall shows excessive intake sugar sweetened beverages and high intake refined carbohydrates. Interventions: 1. Educated pt on physiology of T2DM including effects of chronically elevated BGs, BGs >200 in relation to unhealing wounds, what A1c is and what it means, strategies to optimize BGs. 2. Reviewed s/sx hyperglycemia. 3. Using handout, educated pt on healthy plate, protein, non-starchy, fat, and carbohydrate containing foods and how pair together for balanced intake. Educated on recommended carbohydrate levels per meals and snacks, sources, and practiced meal planning with pt using familiar foods. 4. Introduced pt to hospital menu with carb levels to assist pt with making supportive choices. Pt asked insightful questions and was able to reflect back to RD important concepts. Pt motivated to make dietary changes and feels relieved he can still eat familiar foods. Pt understands moderating carbohydrates is a correction plan and needs to be sustainable. EER: 45-60g CHO per meal, 30-45g CHO per snack Monitoring/Evaluations: DM educator to f/u with pt for further education on Tuesday morning. Electronically Signed by: Tiffanie Varghese 01/26/23 16:38 Clinical Dietitian [address] [address]
--- NOTE | 2023-01-26 17:29 | PT.IIE ---
Current Diagnoses Type 2 diabetes mellitus with foot ulcer (01/25/23) Surgery Performed Operation Date: 01/25/23 16:30 Actual Procedures p I&D toe(Left) - Davi Monroy MD Physical Therapy Inpatient Evaluation/Re-Eval M1 PT/OT-IP Prior Functional Status Start: 01/26/23 17:17 Freq: NEEDED Status: Active Protocol: Document 01/26/23 17:19 ES (Rec: 01/26/23 17:29 ES [id number]) Medical Review Prior Functional Status Medical History Reviewed Yes Diet/Fluid Consistency Regular Communication WFL Mobility and Gait Indep Activities of Daily Living and IADL's Indep Social History Household Members significant other Living Arrangements House Number of Floors (Floors) One Floor Number of Stairs To Enter/Railing? 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 M2 PT-IP Current Condition Start: 01/26/23 17:17 Freq: NEEDED Status: Active Protocol: Document 01/26/23 17:19 ES (Rec: 01/26/23 17:29 ES [id number]) Physical Therapy Current Condition Current Condition Evaluation Date 01/26/23 Treatment Diagnosis Infection L great toe, s/p I&D Onset Date 01/25/23 M3 PT-IP Subjective Start: 01/26/23 17:17 Freq: NEEDED Status: Active Protocol: Document 01/26/23 17:19 ES (Rec: 01/26/23 17:29 ES [id number]) Subjective Physical Therapy Visit Type Type Initial Evaluation Visit Start Time 14:09 Visit Stop Time 14:40 Total Visit Minutes 31 Physical Therapy Visit Comments Patient Comments Patient alert in bed, SO present. Patient agreeable to work with PT. Stated he bumped his foot on the baseboard of the bed and it was sore but otherwise minimal pain. Therapy Pain Assessment Pain When Pain Assessed During Mobility Pain Present Pain Present Denied Pain M4 PT-IP Mobility and Gait Start: 01/26/23 17:17 Freq: NEEDED Status: Active Protocol: Document 01/26/23 17:19 ES (Rec: 01/26/23 17:29 ES [id number]) PT-Bed Mobility Assessment Supine to Sit Supine to Sit Independent Sit to Supine Sit to Supine Independent Scooting Scooting to Edge of Bed Independent Scooting Up and Down in Bed Independent PT-Transfer Assessment Sit to and From Stand Sit to and from Stand Standby Assistance Equipment Transfer Assistive Device Gait Belt,Front Wheeled Walker Orthotic/Prosthetic Devices or Brace: No Gait Assessment Gait Gait Assistance Required: Contact Guard Assist Distance (Feet) 100 Assistive Devices Assistive Device Gait Belt,Front Wheeled Walker Orthotic/Prosthetic Devices or Brace: No Gait Deviations General Gait Pattern Narrow Based Gait Comments Gait Comments Unsteadiness noted during gait . LOB with turning in doorway, requiring PT assist to correct. PT-Balance Assessment Sitting Balance and Reactions Static Sitting Balance Ability Normal Dynamic Sitting Balance Ability Normal Standing Balance and Reactions Static Standing Balance Ability Good Dynamic Standing Balance Ability Fair Device Used FWW M5 PT-IP Objective Assessments Start: 01/26/23 17:17 Freq: NEEDED Status: Active Protocol: Document 01/26/23 17:19 ES (Rec: 01/26/23 17:29 ES [id number]) Orientation Orientation/Cognition Level of Alertness Alert Orientation Name,Age,Birthday,Month,Date, Year,Day of Week,Place, Situation Language Function Ability No Deficits Noted Safety Awareness Understands Safety Issues Memory Description No Deficits Noted Gross Range of Motion Upper Extremity ROM Assessment Within Functional Limits Lower Extremity ROM Assessment Within Functional Limits Strength Upper Extremity Strength Assessment Within Functional Limits Lower Extremity Strength Assessment Within Functional Limits Coordination Assessment Gross Coordination Gross Coordination WNL Sensation Assessment Sensation Gross Sensation Right LE Impaired,Left LE Impaired Light Touch Impaired Sensation Description Numbness Comments Sensation Comments Impaired sensation B feet. Muscle Tone Muscle Tone WNL Yes M6 PT-IP Treatment Start: 01/26/23 17:17 Freq: NEEDED Status: Active Protocol: Document 01/26/23 17:19 ES (Rec: 01/26/23 17:29 ES [id number]) Physical Therapy Treatment Education Education Provided Safety M7 PT-IP Assessment and Plan Start: 01/26/23 17:17 Freq: NEEDED Status: Active Protocol: Document 01/26/23 17:19 ES (Rec: 01/26/23 17:29 ES [id number]) PT Summary Assessment and Plan Potential Rehabilitation Potential Good Status of Condition at Evaluation Stable Summary Impairments Balance,Sensation,Gait Assessment Summary Patient is a 58 year old male who presents with impaired functional mobility due to the above problems. Primarily, patient demonstrated decreased balance with gait, with one LOB needing PT correction. Patient was otherwise able to perform bed mobility and transfers using FWW without difficulty and tolerated activity without increased pain. He will benefit from further skilled PT to increase safety and independence with ambulation and assess safety with stairs in order to return home with SO. Goals Transfer Goal Independent,Front Wheeled Walker Gait Goal Independent,Front Wheel Walker Gait Distance 150 Other Goals Patient will be able to ascend /descend 5 stairs with single rail and LRAD with SBA and no LOB. Days to Meet Goals 3 Frequency of Treatment Frequency Of Treatment Once a Day Treatment Plan Physical Therapy Treatment Plan Transfer Training,Gait Training,Therapeutic Exercise, Balance Retraining,Post Op Education,Discharge Planning Other Recommendations and Next Treatment Assess safety with ambulation Focus and stairs with LRAD. Weight Bearing Status Weight Bearing Status Weight Bear as Tolerated Recommendations To Nursing Amount of Assist Needed Standby Assistance Discharge Recommendations PT Discharge Recommendations Home with Assistance Transportation Needs at Discharge Private Vehicle
[2023-01-26 20:42] VITALS: BP 127/80; PULSE 82; RESP 17; TEMP 37.6; O2SAT 97
[2023-01-26] MEDS: ACETAMINOPHEN 325 MG TABLET 650 MG PO (21:07)
[2023-01-27 04:01] VITALS: BP 124/77; PULSE 75; RESP 16; TEMP 37.4; O2SAT 98
[2023-01-27 05:45] LABS: Add Manual Diff / Slide Review NO; Basophils Absolute Auto 0 /uL (0-100); Basophils Percent Auto 0.5 % (0-2); Eosinophils Absolute Auto 200 /uL (0-450); Eosinophils Percent Auto 1.8 % (2-4); Hematocrit 38.1 % (41-53); Hemoglobin 12.9 g/dL (13.5-17.5); Lymphocytes Absolute Auto 1700 /uL (1100-4500); Lymphocytes Percent Auto 19.1 % (25-40); Mean Corpuscular HGB Conc 33.9 % (30-36); Mean Corpuscular Hemoglobin 28.1 PG (26-34); Mean Corpuscular Volume 82.8 fL (80-100); Monocytes Absolute Auto 1100 /uL (0-900); Monocytes Percent Auto 12.2 % (3-14); Neutrophils Absolute Auto 6000 /uL (1500-7000); Neutrophils Percent Auto 66.4 % (50-75); Platelet Count 394 X10^3/uL (150-400); Red Cell Distribution Width 12.6 % (11.6-14.8)
[2023-01-27 05:52] LABS: Blood Urea Nitrogen 11 mg/dL (9-20); Calcium 9.4 mg/dL (8.4-10.2); Carbon Dioxide 24 mmol/L (22-32); Chloride 99 mmol/L (98-107); Estimated Glomerular Filt Rate > 60 mL/min (>60); Glucose 213 mg/dL (80-110); HEMOLYSIS < 15 (0-50); Potassium 4.4 mmol/L (3.4-5.1); Sodium 132 mmol/L (137-145)
[2023-01-27 07:55] VITALS: BP 136/87; PULSE 75; RESP 18; TEMP 36.7; O2SAT 98
--- NOTE | 2023-01-27 08:08 | PM.PN.1 ---
Subjective Subjective Interval history: Patient awaiting wound check and dressing change with wound care. He has no complaints. Exam Vital Signs (past 8 hours): - 01/27/23 04:01 01/27/23 07:55 Temperature 99.3 F 98.1 F Pulse Rate 75 75 Respiratory Rate 16 18 Blood Pressure 124/77 136/87 Pulse Oximetry 98 98 Oxygen Flow Rate 0 0 Oxygen Delivery Method Room Air Oxygen Flow Rate 0 Narrative Exam Narrative: GEN: no acute distress HEENT: moist mucous membranes, PERRL NECK: trachea midline, no JVD CV: regular rate and rhythm, no murmurs PULM: clear bilaterally ABD: soft, nontender, nondistended, no organomegaly EXT: warm and well perfused with no edema, left foot wrapped in post-surgical gauze NEURO: awake, alert, oriented, no focal deficits Objective Labs 01/27/23 05:13 01/27/23 05:13 Labs: Laboratory Results - last 24 hr 01/27/23 01/27/23 05:13 05:13 WBC 9.0 RBC 4.60 Hgb 12.9 L Hct 38.1 L MCV 82.8 MCH 28.1 MCHC 33.9 RDW 12.6 Plt Count 394 Neut % (Auto) 66.4 Lymph % (Auto) 19.1 L [place] % (Auto) 12.2 Eos % (Auto) 1.8 L Baso % (Auto) 0.5 Neut # (Auto) 6000 Lymph # (Auto) 1700 [place] # (Auto) 1100 H Eos # (Auto) 200 Baso # (Auto) 0 Sodium 132 L Potassium 4.4 Chloride 99 Carbon Dioxide 24 BUN 11 Creatinine 0.58 L Estimated GFR > 60 BUN/Creatinine Ratio 19.0 Glucose 213 H Calcium 9.4 PFSH Social History household members: significant other Smoking Status: Former smoker alcohol intake: current Assessment & Plan Assessment & Plan narrative: # left great toe diabetic foot cellulitis with abscess s/p OR washout on 01/25 -foot x-ray shows cellulitis of left great toe with presence of gas -left foot MRI showed focal osteomyelitis of 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 Porfirio sorensen consulted and performed washout on 01/25 -wound culture growing Group B strep, stopped Vanc and changed zosyn to rocephin 2g daily -wound care consulted -NPO at midnight in case needs further debridement in OR with Dr. Monroy # type 2 diabetes -previously poorly controlled as A1c greater than 14% -A1c 12% -hold home metformin -med-dose sliding scale insulin -diabetes education consulted and met with patient -will likely dc home on basal insulin plus metformin -setup new PCP for patient Dr. Titus at [facility] for February 21 Code status is full code. COVID negative. DVT prophylaxis with SCDs. Proxy is partner Erinn. I have reviewed home meds and used all available resources to reconcile the home meds. Dispo: Home in 1-2 days pending wound check and need for repeat for OR washout or not. Quality VTE Deep Vein Thrombosis/Pulmonary Embolism Present on Admission: No
[2023-01-27] MEDS: INSULIN LISPRO 100 UNIT/ML 3ML VIAL SUBCUT ×3 (08:10→19:40)
[2023-01-27] MEDS: DOCUSATE 100 MG CAPSULE PO ×2 (08:12→20:25)
[2023-01-27] MEDS: METFORMIN HCL 500 MG TABLET PO ×2 (08:12→20:25)
[2023-01-27 11:45] VITALS: BP 140/79; PULSE 77; RESP 18; TEMP 36.8; O2SAT 98
--- NOTE | 2023-01-27 13:30 | CM.DPC ---
DCP Cont: Per MD, pt making progress but awaiting further Ortho Consult to determine if pt needs additional surgical intervention otherwise pt may be stable for d/c home on oral abx and plans to request a colleague accept pt as a new referral at [facility].
--- NOTE | 2023-01-27 13:34 | CM.DPC ---
DCP Cont: Per MD, pt making progress but awaiting further Ortho Consult to determine if further surgical intervention needed and if pt does not require additional I&D then pt may be stable for d/c home on oral abx and has made referral to colleague at [facility] to accept as new pt as he currently does not have insurance and overqualified for [place]. Per PT, recommending safe d/c home with Sig Other assist. Plan: SW to follow for Ortho recommendations to determine if pt medically stable for d/c today on orals or further medical intervention needed. Pamela Diamond MSW
[2023-01-27] MEDS: cefTRIAXone 2,000 MG in SODIUM CHLORIDE 0.9% 100 ML 200 MG IV (15:08)
[2023-01-27] MEDS: SODIUM CHLORIDE 0.9% 100 ML 21 ML (15:10)
--- NOTE | 2023-01-27 15:25 | PT.IPTN ---
Current Diagnoses Type 2 diabetes mellitus with foot ulcer (01/25/23) Surgery Performed Operation Date: 01/25/23 16:30 Actual Procedures p I&D toe(Left) - Davi Monroy MD Physical Therapy Treatment Note M2 PT-IP Current Condition Start: 01/26/23 17:17 Freq: NEEDED Status: Active Protocol: Document 01/26/23 17:19 ES (Rec: 01/26/23 17:29 ES [id number]) Physical Therapy Current Condition Current Condition Evaluation Date 01/26/23 Treatment Diagnosis Infection L great toe, s/p I&D Onset Date 01/25/23 M3 PT-IP Subjective Start: 01/26/23 17:17 Freq: NEEDED Status: Active Protocol: Document 01/27/23 15:04 KS (Rec: 01/27/23 16:10 KS [id number]) Subjective Physical Therapy Visit Type Type Treatment Note Visit Start Time 15:04 Visit Stop Time 15:25 Total Visit Minutes 21 Number of GRIZZLYMAN Visits 1 Physical Therapy Visit Comments Patient Comments Pt in bed, SO present M4 PT-IP Mobility and Gait Start: 01/26/23 17:17 Freq: NEEDED Status: Active Protocol: Document 01/27/23 15:04 KS (Rec: 01/27/23 16:10 KS [id number]) PT-Bed Mobility Assessment Supine to Sit Supine to Sit Independent Sit to Supine Sit to Supine Independent Scooting Scooting to Edge of Bed Independent Scooting Up and Down in Bed Independent PT-Transfer Assessment Sit to and From Stand Sit to and from Stand Standby Assistance Equipment Transfer Assistive Device Gait Belt,Front Wheeled Walker Orthotic/Prosthetic Devices or Brace: No Gait Assessment Gait Gait Assistance Required: Contact Guard Assist Distance (Feet) 250 Assistive Devices Assistive Device Gait Belt,Front Wheeled Walker Orthotic/Prosthetic Devices or Brace: No Gait Deviations General Gait Pattern Narrow Based Gait Comments Gait Comments Ambulated to stairs and back w / FWW, no LOB. Stair Climbing Assessment Evaluation Level of Assist On Stairs Standby Assistance,1 Person Assistance Devices Stair Climbing Assistive Devices Left Railing Technique/Endurance Stair Climbing Direction Ascend and Descend Stair Climbing Technique Step Over Step Number of Steps Climbed 3 Stair Climbing Set # Repetitions (reps) 2 Comments Stair Climbing Comments Step over step ascending, step to descending w/ L rail. No LOB, SBA. PT-Balance Assessment Sitting Balance and Reactions Static Sitting Balance Ability Normal Dynamic Sitting Balance Ability Normal Standing Balance and Reactions Static Standing Balance Ability Good Dynamic Standing Balance Ability Fair Device Used FWW M5 PT-IP Objective Assessments Start: 01/26/23 17:17 Freq: NEEDED Status: Active Protocol: Document 01/26/23 17:19 ES (Rec: 01/26/23 17:29 ES [id number]) Orientation Orientation/Cognition Level of Alertness Alert Orientation Name,Age,Birthday,Month,Date, Year,Day of Week,Place, Situation Language Function Ability No Deficits Noted Safety Awareness Understands Safety Issues Memory Description No Deficits Noted Gross Range of Motion Upper Extremity ROM Assessment Within Functional Limits Lower Extremity ROM Assessment Within Functional Limits Strength Upper Extremity Strength Assessment Within Functional Limits Lower Extremity Strength Assessment Within Functional Limits Coordination Assessment Gross Coordination Gross Coordination WNL Sensation Assessment Sensation Gross Sensation Right LE Impaired,Left LE Impaired Light Touch Impaired Sensation Description Numbness Comments Sensation Comments Impaired sensation B feet. Muscle Tone Muscle Tone WNL Yes M6 PT-IP Treatment Start: 01/26/23 17:17 Freq: NEEDED Status: Active Protocol: Document 01/27/23 15:04 KS (Rec: 01/27/23 16:10 KS [id number]) Physical Therapy Treatment Education Education Provided Safety M7 PT-IP Assessment and Plan Start: 01/26/23 17:17 Freq: NEEDED Status: Active Protocol: Document 01/27/23 15:04 KS (Rec: 01/27/23 16:10 KS [id number]) PT Summary Assessment and Plan Potential Rehabilitation Potential Good Summary Impairments Balance,Sensation,Gait Progress Towards Goals Progressing Toward Goals Assessment Summary Pt progressing well, Independent for most mobility, SBA to CGA for ambulation w/ FWW and stair training w/ L rail. Pt feels safe while mobilizing and at baseline however may have sx tomorrow, so may need further PT following. Will continue to assess progress. Goals Transfer Goal Independent,Front Wheeled Walker Gait Goal Independent,Front Wheel Walker Gait Distance 150 Other Goals Patient will be able to ascend /descend 5 stairs with single rail and LRAD with SBA and no LOB. Days to Meet Goals 3 Frequency of Treatment Frequency Of Treatment Once a Day Treatment Plan Physical Therapy Treatment Plan Transfer Training,Gait Training,Therapeutic Exercise, Balance Retraining,Post Op Education,Discharge Planning Other Recommendations and Next Treatment Assess safety with ambulation Focus and stairs with LRAD. Weight Bearing Status Weight Bearing Status Weight Bear as Tolerated Recommendations To Nursing Amount of Assist Needed Standby Assistance Discharge Recommendations PT Discharge Recommendations Home with Assistance Transportation Needs at Discharge Private Vehicle
--- NOTE | 2023-01-27 16:09 | P.CONS_ITS ---
History of Present Illness Consult details Date Patient Seen: 01/27/23 Time Patient Seen: 15:30 Chief complaint: Swollen lt big toe after firewood dropped on it Narrative: The patient is a 58-year-old male with new onset type 2 diabetes mellitus who had dropped some firewood on his left great toe then later developed redness, swelling, and purulent drainage. He was admitted to the hospital January 25, 2023 with a diabetic foot infection. A MRI was obtained that showed evidence for cellulitis of the left foot and osteomyelitis of the left great toe proximal ph alanx head and distal phalanx. The patient underwent I&D of the left great toe by Dr. Monroy and was started on ceftriaxone. Cultures grew Staphylococcus group B. Laboratory evaluation revealed leukocytosis upon admission as well as hemoglobin A1c of 12.1. The patient was not previously taking any medications to control his blood sugars. At the time I examination the patient denied any pain or discomfort nor did he have any fever or chills. He is concerned that he may have to go back to the operating room for further surgery. The patient is a nonsmoker and is able to ambulate without difficulty. He does not have any diabetic footwear. Meds Home Medications and Allergies Home Medications Medication Instructions Recorded Confirmed Type metformin 500 mg tablet 500 mg PO BID 01/25/23 01/25/23 History Allergies Allergy/AdvReac Type Severity Reaction Status Date / Time No Known Drug Allergies Allergy Verified 01/25/23 08:58 Review of Systems Constitutional Comments: No recent changes in overall health, weight has been stable Cardiovascular Comments: No chest pain Respiratory Comments: No coughing wheezing or shortness of breath Exam Vital Signs (past 8 hours): - 01/27/23 11:45 Temperature 98.3 F Pulse Rate 77 Respiratory Rate 18 Blood Pressure 140/79 Pulse Oximetry 98 Oxygen Flow Rate 0 Oxygen Delivery Method Room Air Oxygen Flow Rate 0 Narrative Exam Narrative: The patient is a well-developed well-nourished male who is alert and oriented in no apparent distress. Skin Other: Resolving erythema dorsum of left foot and great toe, incision along the medial aspect of the left great toe that extends just proximal to the head of the 1st metatarsal, sutures in place, there is some quarter-inch gauze coming out of the proximal and distal portions of the wound Neuro Other: Decreased lower extremity sensation Extrem Other: 3+ dorsalis pedis and posterior tibial pulses Objective Labs 04/27/23 05:13 01/27/23 05:13 Labs: Laboratory Results - last 24 hr 01/27/23 01/27/23 05:13 05:13 WBC 9.0 RBC 4.60 Hgb 12.9 L Hct 38.1 L MCV 82.8 MCH 28.1 MCHC 33.9 RDW 12.6 Plt Count 394 Neut % (Auto) 66.4 Lymph % (Auto) 19.1 L [place] % (Auto) 12.2 Eos % (Auto) 1.8 L Baso % (Auto) 0.5 Neut # (Auto) 6000 Lymph # (Auto) 1700 [place] # (Auto) 1100 H Eos # (Auto) 200 Baso # (Auto) 0 Sodium 132 L Potassium 4.4 Chloride 99 Carbon Dioxide 24 BUN 11 Creatinine 0.58 L Estimated GFR > 60 BUN/Creatinine Ratio 19.0 Glucose 213 H Calcium 9.4 PFSH Social History household members: significant other Tobacco & Substance Use Smoking Status: Former smoker alcohol intake: current Assessment & Plan Assessment and plan (1) Osteomyelitis of great toe of left foot: Status: Acute (2) Abscess of great toe of left foot: Status: Acute Assessment & Plan narrative: Recommend painting the incision twice a day with Betadine then allow to air dry and wrap with Kerlex, surgical shoe for pressure offloading, consult ID for recommendations regarding type and duration of antibiotic therapy, follow up at wound center for further evaluation and treatment. Time Spent With Patient Time with patient: 30 to 49 minutes with 50% spent counseling/coordinating care
--- NOTE | 2023-01-27 18:20 | PM.PNPO.1 ---
Subjective Subjective Interval history: Patient is postoperative day 2. Of an I and D of the left 1st toe. Patient denies any pain. Denies any fevers or chills. Exam Vital Signs (past 8 hours): - 01/27/23 11:45 Temperature 98.3 F Pulse Rate 77 Respiratory Rate 18 Blood Pressure 140/79 Pulse Oximetry 98 Oxygen Flow Rate 0 Oxygen Delivery Method Room Air Oxygen Flow Rate 0 Narrative Exam Narrative: Dressing was removed today. Decrease in swelling and erythema around the foot and toe. No sign of any purulent drainage. Objective Labs 01/27/23 05:13 01/27/23 05:13 Labs: Laboratory Results - last 24 hr 01/27/23 01/27/23 05:13 05:13 WBC 9.0 RBC 4.60 Hgb 12.9 L Hct 38.1 L MCV 82.8 MCH 28.1 MCHC 33.9 RDW 12.6 Plt Count 394 Neut % (Auto) 66.4 Lymph % (Auto) 19.1 L [place] % (Auto) 12.2 Eos % (Auto) 1.8 L Baso % (Auto) 0.5 Neut # (Auto) 6000 Lymph # (Auto) 1700 [place] # (Auto) 1100 H Eos # (Auto) 200 Baso # (Auto) 0 Sodium 132 L Potassium 4.4 Chloride 99 Carbon Dioxide 24 BUN 11 Creatinine 0.58 L Estimated GFR > 60 BUN/Creatinine Ratio 19.0 Glucose 213 H Calcium 9.4 PFSH Social History household members: significant other Smoking Status: Former smoker alcohol intake: current Assessment & Plan Post-op Postoperative Procedures: Procedures Operation Date: 01/25/23 16:30 Actual Procedure Side Surgeon p I&D toe Left Davi Monroy MD Postoperative day: 2 Postoperative status narrative: Patient is postoperative day 2. To his left toe. Would recommend a repeat irrigation and debridement tomorrow. If things look clean enough then patient can be discharged home the same day. Postoperative plan: other (Repeat I&D Tuesday) Quality VTE Deep Vein Thrombosis/Pulmonary Embolism Present on Admission: No
[2023-01-27] MEDS: MAG HYDROX/ALUM/SIMETH 30 ML UDC PO (20:24)
[2023-01-27] MEDS: ACETAMINOPHEN 325 MG TABLET 650 MG PO (20:25)
[2023-01-27] MEDS: MELATONIN 3 MG TABLET 6 MG PO (20:25)
[2023-01-27 23:33] VITALS: BP 122/69; PULSE 74; RESP 16; TEMP 36.2; O2SAT 98
[2023-01-28] VITALS (10 sets, daily range): BP systolic 121–141; BP diastolic 25–83; PULSE 69–84; RESP 12–20; TEMP 36.2–37.3; O2SAT 96–98; BMI 25.4
[2023-01-28 05:26] LABS: Add Manual Diff / Slide Review NO; Basophils Absolute Auto 100 /uL (0-100); Basophils Percent Auto 0.6 % (0-2); Eosinophils Absolute Auto 200 /uL (0-450); Eosinophils Percent Auto 2.2 % (2-4); Hematocrit 38.9 % (41-53); Hemoglobin 13.3 g/dL (13.5-17.5); Lymphocytes Absolute Auto 2100 /uL (1100-4500); Lymphocytes Percent Auto 23.6 % (25-40); Mean Corpuscular HGB Conc 34.3 % (30-36); Mean Corpuscular Hemoglobin 28.4 PG (26-34); Monocytes Absolute Auto 1000 /uL (0-900); Monocytes Percent Auto 10.6 % (3-14); Neutrophils Absolute Auto 5700 /uL (1500-7000); Platelet Count 454 X10^3/uL (150-400); Red Blood Cell Count 4.68 X10^6/uL (4.5-5.9); Red Cell Distribution Width 12.9 % (11.6-14.8)
[2023-01-28 05:41] LABS: Blood Urea Nitrogen 15 mg/dL (9-20); Calcium 9.9 mg/dL (8.4-10.2); Carbon Dioxide 24 mmol/L (22-32); Chloride 100 mmol/L (98-107); Estimated Glomerular Filt Rate > 60 mL/min (>60); Glucose 229 mg/dL (80-110); HEMOLYSIS < 15 (0-50); Potassium 4.6 mmol/L (3.4-5.1); Sodium 133 mmol/L (137-145)
[2023-01-28] MEDS: INSULIN LISPRO 100 UNIT/ML 3ML VIAL SUBCUT ×4 (08:02→20:01)
--- NOTE | 2023-01-28 09:56 | PC.NURSE ---
Day shift: Pt off unit for procedure at approx 0945.
[2023-01-28] MEDS: LACTATED RINGERS 1,000 ML 42 ML IV ×2 (10:23→11:12)
--- NOTE | 2023-01-28 11:02 | SUR.OPER ---
Supine on padded OR bed, head on pillow, arms secured on padded arm boards at <90 degrees abduction, legs uncrossed, safety belt at waist, tape over blanket over lower right leg , left leg draped free.
[2023-01-28] MEDS: BUPIVACAINE 0.25% (PF) 30 ML, EPINEPHrine 0.15 MG INJ (11:13)
--- NOTE | 2023-01-28 11:28 | PM.OP.1 ---
Operative Date/Time/Diagnoses Date of procedure: 01/28/23 Time of procedure: 11:00 Pre-op diagnosis: Left great toe diabetic infection Post-op diagnosis: same Procedure & Clinicians Procedure: Irrigation and debridement left 1st toe Same procedure as scheduled: Yes (Diabetic toe infection left) Indications: Diabetic toe infection left Surgeon: Davi Monroy Click Yes if Unassisted: Yes Anesthesia Type: MAC +/- Operative Notes Findings: No sign of any purulence. Wound bed much railroad car cleaner compared to his Tuesday. No significant necrotic tissue. Closure Type: primary Estimated Blood Loss (mL): 5 Tourniquet time (min): 13 Procedure in detail: On date of service, patient was met in the holding area where his operative site was signed and witnessed by the OR staff. Surgery was once again discussed with the patient and any remaining questions or concerns that he had were answered fully. Patient was taken back to the operating theater and placed on the operating table in a supine position. Great care was taken to ensure that all bony prominences were appropriately padded and a tourniquet was placed along the left calf. Time-out was performed verifying patient's name, procedure, and operative site. The leg was elevated for exsanguination and the tourniquet was turned up to 250 mmHg. Sutures were removed and previous packing material was removed as well. No sign of any purulent material no sign of any drainage. Wound bed was much railroad car cleaner than it was 72 hours ago. Pulse lavage was used to irrigate 1 L of fluid into the wound. This was then followed by another L with the bulb syringe. Wound bed looked very clean after the irrigation. The wound was then repacked and then closed with nylon. The foot was cleaned, dried, and dressed and patient was taken to the PACU in stable condition. Complications: none Post-operative Condition: stable Disposition: Acute Care Plan for aftercare: Patient can be discharged home once cleared by Medicine.
--- NOTE | 2023-01-28 11:45 | SUR.PHASEI ---
to 216. all belongings in room prior to coming to OR. denies pain, no n\v
--- NOTE | 2023-01-28 12:23 | CM.DPC ---
DCP Planning: Per MD, pt to have another I&D today but per Surgeon can likely d/c after I&D but will now need 6 weeks IV Ceftriaxone 2g Q24 and to have PICC placed today. HAYLIE met bedside with pt and Sig Other and confirmed they are still attempting to get through to [facility] to see about medical coverage and also working through the Exchange to get insurance but no insurance secured yet. Sig Other working diligently each day on insurance. HAYLIE called [facility] and discussed pt situation and faxed referral and they will review to determine possible cost or payment plan etc.. HAYLIE called [facility] [phone] and [place] [facility] [place] to determine if they have any [facility] options if pt does not get insurance. HAYLIE received a call from [facility] for update on pt timeline for d/c as Dr. Barfield had consulted and to get pt scheduled and SW [place] [facility] [place] with update of barriers to discharge and possible d/c this vs Tue pending above. [facility] closed today Tuesday. Plan: HAYLIE to follow closely for return calls from [facility] and [facility] to determine options for discharge for pt needing wound care and 6 weeks IV-Abx and currently no insurance. KAYLEIGH Weston
--- NOTE | 2023-01-28 12:36 | PC.NURSE ---
Day shift: Pt back in room from PACU at approx 1200. Denies any pain. CMS ok. Left foot dressing is CDI. VS WNL. RA 99%.
--- NOTE | 2023-01-28 14:13 | DI.RAD.S_ITS ---
PROCEDURE: XR CHEST FOR PICC 1V INDICATIONS: line placement TECHNIQUE: One view of the chest was acquired. COMPARISON: None. FINDINGS: Surgical changes and devices: Right upper extremity PICC is in place with the distal tip projecting over the lower SVC. Lungs and pleura: Lungs are clear. No pleural effusions or pneumothorax. Mediastinum: Mediastinal contours appear normal. Heart size is normal. Bones and chest wall: No suspicious bony lesions. Overlying soft tissues appear unremarkable. IMPRESSION: Right upper extremity PICC is in place with the distal tip projecting over the lower SVC. No acute cardiopulmonary abnormality seen. Dictated by: Bang Kohli M.D. on 01/28/2023 at 14:49 Approved by: Bang Kohli M.D. on 01/28/2023 at 14:50
--- NOTE | 2023-01-28 14:46 | P.PN_ITS ---
Subjective Subjective Interval history: Patient went back to OR this morning for further debridement. Will require 6 weeks of IV abx per ortho for osteomyelitis. [facility]OOMCORN SEEDER arranging outpatient IV infusions. PICC line ordered. Exam Vital Signs (past 8 hours): - 01/28/23 09:11 01/28/23 10:02 01/28/23 11:23 Temperature 98.0 F 97.9 F 97.2 F L Pulse Rate 75 81 72 Respiratory Rate 16 20 12 Blood Pressure 128/78 131/25 L 124/72 Pulse Oximetry 98 98 97 Oxygen Delivery Method Room Air Room Air Oxygen Flow Rate 01/28/23 11:27 01/28/23 11:33 01/28/23 11:45 Temperature 97.6 F Pulse Rate 75 72 69 Respiratory Rate 12 15 18 Blood Pressure 128/78 135/79 132/80 Pulse Oximetry 98 97 96 Oxygen Delivery Method Room Air Oxygen Flow Rate 0 01/28/23 12:15 01/28/23 13:15 Temperature 97.8 F 97.9 F Pulse Rate 70 72 Respiratory Rate 18 18 Blood Pressure 141/83 H 135/80 Pulse Oximetry 98 97 Oxygen Delivery Method Oxygen Flow Rate 0 0 Oxygen Delivery Method Room Air Oxygen Flow Rate 0 Narrative Exam Narrative: GEN: no acute distress HEENT: moist mucous membranes, PERRL NECK: trachea midline, no JVD CV: regular rate and rhythm, no murmurs PULM: clear bilaterally ABD: soft, nontender, nondistended, no organomegaly EXT: warm and well perfused with no edema, left foot wrapped in post-surgical gauze NEURO: awake, alert, oriented, no focal deficits Objective Labs 01/28/23 05:01 01/28/23 05:01 Labs: Laboratory Results - last 24 hr 01/28/23 01/28/23 05:01 05:01 WBC 9.0 RBC 4.68 Hgb 13.3 L Hct 38.9 L MCV 83.0 MCH 28.4 MCHC 34.3 RDW 12.9 Plt Count 454 H Neut % (Auto) 63.0 Lymph % (Auto) 23.6 L [place] % (Auto) 10.6 Eos % (Auto) 2.2 Baso % (Auto) 0.6 Neut # (Auto) 5700 Lymph # (Auto) 2100 [place] # (Auto) 1000 H Eos # (Auto) 200 Baso # (Auto) 100 Sodium 133 L Potassium 4.6 Chloride 100 Carbon Dioxide 24 BUN 15 Creatinine 0.60 L Estimated GFR > 60 BUN/Creatinine Ratio 25.0 H Glucose 229 H Calcium 9.9 PFSH Social History household members: significant other Smoking Status: Former smoker alcohol intake: current Assessment & Plan Assessment & Plan narrative: # left great toe diabetic foot cellulitis with abscess s/p OR washout on 01/25 -foot x-ray shows cellulitis of left great toe with presence of gas -left foot MRI showed focal osteomyelitis of 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 Porfirio sorensen consulted and performed washout on 01/25 -wound culture growing Group B strep, stopped Vanc and changed zosyn to rocephin 2g daily -wound care consulted, Dr. Barfield saw and rec BID betadine and wrap in kerlix, f/u in wound clinic -took back to OR on 01/28 for further debridement and wound was healing well, no amputation of toe done -spoke with [facility] as patient will need 6 weeks of IV rocephin 2g daily to end on March 08, 2023 -PICC line placed # type 2 diabetes -previously poorly controlled as A1c greater than 14% -A1c 12% -hold home metformin -med-dose sliding scale insulin -diabetes education consulted and met with patient -will likely dc home on basal insulin plus metformin -setup new PCP for patient Dr. Titus at [facility] for February 21 Code status is full code. COVID negative. DVT prophylaxis with SCDs. Proxy is partner Erinn. I have reviewed home meds and used all available resources to reconcile the home meds. Dispo: Home pending setup of outpatient IV abx for 6 weeks. Quality VTE Deep Vein Thrombosis/Pulmonary Embolism Present on Admission: No
--- NOTE | 2023-01-28 15:30 | PT.IPTN ---
Current Diagnoses Type 2 diabetes mellitus with foot ulcer (01/25/23) Cutaneous abscess of left foot (01/25/23) Osteomyelitis, unspecified (01/25/23) Surgery Performed Operation Date: 01/25/23 16:30 Actual Procedures p I&D toe(Left) - Davi Monroy MD Operation Date: 01/28/23 10:30 Actual Procedures p washout 1st toe(Left) - Davi Monroy MD Physical Therapy Treatment Note M2 PT-IP Current Condition Start: 01/26/23 17:17 Freq: NEEDED Status: Active Protocol: Document 01/26/23 17:19 ES (Rec: 01/26/23 17:29 ES [id number]) Physical Therapy Current Condition Current Condition Evaluation Date 01/26/23 Treatment Diagnosis Infection L great toe, s/p I&D Onset Date 01/25/23 M3 PT-IP Subjective Start: 01/26/23 17:17 Freq: NEEDED Status: Active Protocol: Document 01/28/23 15:55 TS (Rec: 01/28/23 16:13 TS [id number]) Subjective Physical Therapy Visit Type Type Treatment Note Visit Start Time 15:30 Visit Stop Time 15:45 Total Visit Minutes 15 Number of MODEL AND MOLD MAKER Visits 2 Physical Therapy Visit Comments Patient Comments Pt reports having surgery for toe this morning, not having much pain, agreeable to PT session. Therapy Pain Assessment Pain When Pain Assessed During Mobility Pain Present Pain Present Denied Pain M4 PT-IP Mobility and Gait Start: 01/26/23 17:17 Freq: NEEDED Status: Active Protocol: Document 01/28/23 15:55 TS (Rec: 01/28/23 16:13 TS [id number]) PT-Bed Mobility Assessment Supine to Sit Supine to Sit Independent Sit to Supine Sit to Supine Independent Scooting Scooting to Edge of Bed Independent Scooting Up and Down in Bed Independent PT-Transfer Assessment Sit to and From Stand Sit to and from Stand Standby Assistance Equipment Transfer Assistive Device None,Gait Belt,Front Wheeled Walker Orthotic/Prosthetic Devices or Brace: No Comments Mobility Comments Pt found resting in bed, agreeable to PT session. Pt is Ind for all bed mobility with BUE support. Sit to stand with no AD SBA. Pt ambulated in hallway ~400 SBA with FWW, demonstrates good upright posture, no buckling or LOB. Stairs x6 with BUE support on handrails, pt demonstrated good carryover from previous session. Pt ambulated in room with no AD ~25' with antalgic gait, reports of no pain in toe. PT was left in bed with call light nearby, spouse in room. Gait Assessment Gait Gait Assistance Required: Contact Guard Assist Distance (Feet) 425 Assistive Devices Assistive Device Gait Belt,Front Wheeled Walker Orthotic/Prosthetic Devices or Brace: No Gait Deviations General Gait Pattern Narrow Based Gait Comments Gait Comments See mobility comments. Stair Climbing Assessment Evaluation Level of Assist On Stairs Standby Assistance,1 Person Assistance Devices Stair Climbing Assistive Devices Left Railing,Right Railing Technique/Endurance Stair Climbing Direction Ascend and Descend Stair Climbing Technique Step Over Step,Step to Step Number of Steps Climbed 6 Stair Climbing Set # Repetitions (reps) 2 Comments Stair Climbing Comments Pt ascended steps step over step, descended step to step. PT-Balance Assessment Sitting Balance and Reactions Static Sitting Balance Ability Normal Dynamic Sitting Balance Ability Normal Standing Balance and Reactions Static Standing Balance Ability Good Dynamic Standing Balance Ability Fair Device Used FWW M5 PT-IP Objective Assessments Start: 01/26/23 17:17 Freq: NEEDED Status: Active Protocol: Document 01/26/23 17:19 ES (Rec: 01/26/23 17:29 ES [id number]) Orientation Orientation/Cognition Level of Alertness Alert Orientation Name,Age,Birthday,Month,Date, Year,Day of Week,Place, Situation Language Function Ability No Deficits Noted Safety Awareness Understands Safety Issues Memory Description No Deficits Noted Gross Range of Motion Upper Extremity ROM Assessment Within Functional Limits Lower Extremity ROM Assessment Within Functional Limits Strength Upper Extremity Strength Assessment Within Functional Limits Lower Extremity Strength Assessment Within Functional Limits Coordination Assessment Gross Coordination Gross Coordination WNL Sensation Assessment Sensation Gross Sensation Right LE Impaired,Left LE Impaired Light Touch Impaired Sensation Description Numbness Comments Sensation Comments Impaired sensation B feet. Muscle Tone Muscle Tone WNL Yes M6 PT-IP Treatment Start: 01/26/23 17:17 Freq: NEEDED Status: Active Protocol: Document 01/28/23 15:55 TS (Rec: 01/28/23 16:13 TS [id number]) Physical Therapy Treatment Education Education Provided Safety M7 PT-IP Assessment and Plan Start: 01/26/23 17:17 Freq: NEEDED Status: Active Protocol: Document 01/28/23 15:55 TS (Rec: 01/28/23 16:13 TS [id number]) PT Summary Assessment and Plan Potential Rehabilitation Potential Good Status of Condition at Evaluation Evolving Summary Impairments Balance,Sensation,Gait Progress Towards Goals Progressing Toward Goals Assessment Summary Pt continues to progress well, increased gait to ~450' in hallway with FWW, ~25' in room with no AD SBA. He performed stairs x6 SBA, demonstrated carryover of sequencing from previous session. He has no c/ o pain or discomfort from surgery in the morning. PT recommends return home with assist from spouse as needed. Goals Transfer Goal Independent,Front Wheeled Walker Gait Goal Independent,Front Wheel Walker Gait Distance 150 Other Goals Patient will be able to ascend /descend 5 stairs with single rail and LRAD with SBA and no LOB. Days to Meet Goals 3 Frequency of Treatment Frequency Of Treatment Once a Day Treatment Plan Physical Therapy Treatment Plan Transfer Training,Gait Training,Therapeutic Exercise, Balance Retraining,Post Op Education,Discharge Planning Other Recommendations and Next Treatment Continue to progress gait and Focus stairs. Trial balance testing. Weight Bearing Status Weight Bearing Status Weight Bear as Tolerated Recommendations To Nursing Amount of Assist Needed Standby Assistance Discharge Recommendations PT Discharge Recommendations Home with Assistance Transportation Needs at Discharge Private Vehicle
[2023-01-28] MEDS: cefTRIAXone 2,000 MG in SODIUM CHLORIDE 0.9% 100 ML 200 MG IV (15:31)
--- NOTE | 2023-01-28 15:31 | DIET.PN1 ---
Dietary Progress Note Assessment: 58M admitted with left Dm foot infection necessitating I&D tx. Reports last HgA1c was >14% and now 12.1%. Main barrier to care has been he is underinsured and is not established with PCP. Working both with hospitalist and SW. Plans for him to d/c on NPH BID, in addition to Metformin. Recent BG range from 170-230mg/dl. Currently on Metformin 500mg BID and Lispro 2-3u per MAR. Likely benefit from a medium or long acting insulin. Plans for d/c tomorrow potentially. Chis is checking BG at home and endorses BG often >200mg/dl. Does not go barefoot. Feels pretty comfortable about nutrition recs since seeing Tiffanie HIGGINS. Received some education from RN on kidney, foot, and overall diabetes care via printed handouts. . Today he and his partner have questions regarding insulin injection, lifestyle changes, and blood sugars vs HgA1c. Ht: 187.96 cm Wt: 89.9 kg BMI: 25.4 Last BM: 01/28/23 (01/28/23 15:00) MNA: 14 Magan Score: 21 Diet: 01/28/23 Lunch Carbohydrate Consistent Diet Diet Modifications: Carbohydrate level: Small (2 CHO) Reflex DM orders: No Nutrition Percent Meal Consumed 100% 01/28/23 07:00 Percent Meal Consumed 100% 01/27/23 18:00 Percent Meal Consumed 0% 01/27/23 10:17 Percent Meal Consumed 100% 01/26/23 18:00 Labs: RBC 4.68 X10^6/uL (4.5-5.9) 01/28/23 05:01 Hgb 13.3 g/dL (13.5-17.5) L 01/28/23 05:01 Hct 38.9 % (41-53) L 01/28/23 05:01 Creatinine 0.60 mg/dL (0.66-1.25) L 01/28/23 05:01 Interventions: Brief nutrition review OP DSME resources Injection technique and education Review of insulin type and resources Foot care review BG log and review of goals provided hgA1c goal and rationale provided Brief DM pathophysiology Monitoring/Evaluations: Consult prn. Provided my card for questions, concerns, or DSME follow-up needs. Electronically Signed by: Suzie Zarco 01/28/23 15:31 Clinical Dietitian, [address] [address]
[2023-01-28] MEDS: DOCUSATE 100 MG CAPSULE PO (20:00)
[2023-01-28] MEDS: MELATONIN 3 MG TABLET 6 MG PO (20:00)
[2023-01-28] MEDS: METFORMIN HCL 500 MG TABLET PO (20:00)
[2023-01-28] MEDS: SODIUM CHLORIDE 0.9% FLUSH 10 ML IV (20:01)
[2023-01-29 05:00] VITALS: BP 118/76; PULSE 78; RESP 14; TEMP 36.7; O2SAT 97
[2023-01-29 05:36] LABS: Hematocrit 38.1 % (41-53); Hemoglobin 13.1 g/dL (13.5-17.5); Mean Corpuscular HGB Conc 34.4 % (30-36); Mean Corpuscular Hemoglobin 28.4 PG (26-34); Mean Corpuscular Volume 82.8 fL (80-100); Platelet Count 469 X10^3/uL (150-400); Red Blood Cell Count 4.61 X10^6/uL (4.5-5.9); Red Cell Distribution Width 12.9 % (11.6-14.8); White Blood Cell Count 8.4 X10^3/uL (4.5-11.0)
[2023-01-29] MEDS: METFORMIN HCL 500 MG TABLET PO ×2 (08:28→17:08)
[2023-01-29] MEDS: DOCUSATE 100 MG CAPSULE PO ×2 (08:28→20:57)
[2023-01-29] MEDS: SODIUM CHLORIDE 0.9% FLUSH 10 ML IV ×3 (08:29→21:03)
[2023-01-29] MEDS: INSULIN LISPRO 100 UNIT/ML 3ML VIAL SUBCUT ×3 (08:31→17:06)
--- NOTE | 2023-01-29 10:06 | PM.PNPO.1 ---
Subjective Subjective Date Patient Seen: 01/29/23 Time Patient Seen: 10:06 Interval history: Pt sitting up comfortably in bed, no complaints, not requiring any narcotic pain medication. Per CM, discharge is pending working out IV abx for the next 6 weeks. Exam Vital Signs (past 8 hours): - 01/29/23 05:00 Temperature 98.1 F Pulse Rate 78 Respiratory Rate 14 Blood Pressure 118/76 Pulse Oximetry 97 Oxygen Flow Rate 0 Oxygen Delivery Method Room Air Oxygen Flow Rate 0 Narrative Exam Narrative: LLE: Wiggles toes without difficulty, good capillary refill. Sensation to touch is intact along foot and tips of all toes with the exception of the great toe. Soft dressing place intraoperatively is CDI. Objective Labs 01/29/23 05:00 01/28/23 05:01 Labs: Laboratory Results - last 24 hr 01/29/23 05:00 WBC 8.4 RBC 4.61 Hgb 13.1 L Hct 38.1 L MCV 82.8 MCH 28.4 MCHC 34.4 RDW 12.9 Plt Count 469 H PFSH Social History household members: significant other Smoking Status: Former smoker alcohol intake: current Assessment & Plan Post-op Assessment and plan (1) Abscess of great toe of left foot: Assessment and Plan narrative: POD# 4 and 1 s/p I&D of left great toe. Disposition per hospitalist and CM teams. Abx per ID. Wound care has also been consulted and has a plan in place. Will sign off from an orthopedic standpoint; please reconsult if necessary. Pt can follow up w/ ortho on an as-needed basis. Postoperative Procedures: Procedures Operation Date: 01/25/23 16:30 Actual Procedure Side Surgeon p I&D toe Left Davi Monroy MD Operation Date: 01/28/23 10:30 Actual Procedure Side Surgeon p washout 1st toe Left Davi Monroy MD Quality VTE Deep Vein Thrombosis/Pulmonary Embolism Present on Admission: No
[2023-01-29] MEDS: ENOXAPARIN 40 MG/0.4 ML SYRINGE SUBCUT (11:17)
[2023-01-29 11:46] VITALS: BP 139/82; PULSE 73; RESP 16; TEMP 36.7; O2SAT 94
[2023-01-29] MEDS: INSULIN NPH 100 UNIT/ML 10ML VIAL 10 UNIT SUBCUT ×2 (11:51→17:05)
--- NOTE | 2023-01-29 13:18 | PT-IP ANOTE ---
Per chart review and discussion with WEATHER TEACHER, patient has been ambulatory with and without AD for community distances without difficulty, and is independent with bed mobility and transfers. No further skilled PT indicated; patient appropriate to d/c with SO assistance when medically cleared. Will d/c PT orders.
[2023-01-29] MEDS: cefTRIAXone 2,000 MG in SODIUM CHLORIDE 0.9% 100 ML 200 MG IV (14:33)
--- NOTE | 2023-01-29 16:22 | P.PN_ITS ---
Subjective Subjective Interval history: Patient has no complaints. Awaiting PSYCHOLOGIST ENGINEERING to arrange outpatient IV abx. Exam Vital Signs (past 8 hours): - 01/29/23 11:46 Temperature 98.0 F Pulse Rate 73 Respiratory Rate 16 Blood Pressure 139/82 Pulse Oximetry 94 Oxygen Delivery Method Room Air Oxygen Flow Rate 0 Narrative Exam Narrative: GEN: no acute distress HEENT: moist mucous membranes, PERRL NECK: trachea midline, no JVD CV: regular rate and rhythm, no murmurs PULM: clear bilaterally ABD: soft, nontender, nondistended, no organomegaly EXT: warm and well perfused with no edema, left foot wrapped in post-surgical gauze NEURO: awake, alert, oriented, no focal deficits Objective Labs 01/29/23 05:00 01/28/23 05:01 Labs: Laboratory Results - last 24 hr 01/29/23 05:00 WBC 8.4 RBC 4.61 Hgb 13.1 L Hct 38.1 L MCV 82.8 MCH 28.4 MCHC 34.4 RDW 12.9 Plt Count 469 H PFSH Social History household members: significant other Smoking Status: Former smoker alcohol intake: current Assessment & Plan Assessment & Plan narrative: # left great toe diabetic foot cellulitis with abscess s/p OR washout on 01/25 -foot x-ray shows cellulitis of left great toe with presence of gas -left foot MRI showed focal osteomyelitis of 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 Porfirio sorensen consulted and performed washout on 01/25 -wound culture growing Group B strep, stopped Vanc and changed zosyn to rocephin 2g daily -wound care consulted, Dr. Barfield saw and rec BID betadine and wrap in kerlix, f/u in wound clinic -took back to OR on 01/28 for further debridement and wound was healing well, no amputation of toe done -spoke with [facility] as patient will need 6 weeks of IV rocephin 2g daily to end on March 08, 2023 -PICC line placed on 01/28 -PSYCHOLOGIST ENGINEERING arranging outpatient IV abx, via home infusion vs infusion center as patient does not currently have insurance # type 2 diabetes -previously poorly controlled as A1c greater than 14% -A1c 12% -continue metformin 500mg BID, start NPH 10 units BID -med-dose sliding scale insulin -diabetes education consulted and met with patient -will likely dc home on NPH insulin plus metformin -setup new PCP for patient Dr. Titus at [facility] for February 21 Code status is full code. COVID negative. DVT prophylaxis with SCDs. Proxy is partner Erinn. I have reviewed home meds and used all available resources to reconcile the home meds. Dispo: Home pending setup of outpatient IV abx for 6 weeks. Quality VTE Deep Vein Thrombosis/Pulmonary Embolism Present on Admission: No
--- NOTE | 2023-01-29 16:42 | CM.DPNOTE ---
Discharge Planning Note: Patient with osteomyelitis of his left toe, s/p surgical debridement. Patient has no insurance and his SO is currently helping him to pursue VA insurance. He will need 6 weeks of IV antibotics and [facility] cannot take until VA insurance kicks in as they do not back reimburse. Plan: On Tuesday follow up with [facility], Sil[facility] BERNSTEIN. Follow up with patient/partner on status of VA insurance progress. Madison Canales RN/DCP
[2023-01-29 20:48] VITALS: BP 111/70; PULSE 81; RESP 17; TEMP 36.4; O2SAT 98
[2023-01-29] MEDS: MELATONIN 3 MG TABLET 6 MG PO (20:57)
[2023-01-30 00:22] VITALS: BP 114/70; PULSE 70; RESP 17; TEMP 36.4; O2SAT 98
[2023-01-30 04:50] VITALS: BP 114/70; PULSE 71; RESP 17; TEMP 36.5; O2SAT 97
[2023-01-30] MEDS: INSULIN NPH 100 UNIT/ML 10ML VIAL 10 UNIT SUBCUT (08:17)
[2023-01-30] MEDS: INSULIN LISPRO 100 UNIT/ML 3ML VIAL SUBCUT ×4 (08:18→21:23)
[2023-01-30] MEDS: ENOXAPARIN 40 MG/0.4 ML SYRINGE SUBCUT (08:25)
[2023-01-30] MEDS: METFORMIN HCL 500 MG TABLET PO ×2 (08:25→16:36)
[2023-01-30] MEDS: SODIUM CHLORIDE 0.9% FLUSH 10 ML IV ×3 (08:28→21:24)
[2023-01-30 11:38] VITALS: BP 110/72; PULSE 81; RESP 18; TEMP 36.6; O2SAT 97
[2023-01-30] MEDS: cefTRIAXone 2,000 MG in SODIUM CHLORIDE 0.9% 100 ML 200 MG IV (14:15)
--- NOTE | 2023-01-30 14:35 | CM.DPC ---
DCP Outpt Infusion Planning; Per MD, pt has PICC placed and remains on IV Ceftriaxone Q24 and cannot switch to orals. Can discharge once outpt infusion set up. Due to today being a Sun, no return call from [facility] or [facility] regarding outpt IV-Abx. Per [facility], they cannot accept pt until he has insurance, they cannot do private pay. HAYLIE met bedside with pt and Sig Other and SO confirms she completed pt's online VA insurance form and submitted but does not know when she will hear back if pt approved for VA coverage. SO trying to look into private insurance but unsure which insurance and overwhelmed and SW suggested calling an health insurance adjuster to discuss pt's situation and direction for the best coverage for pt from a private insurance and SO willing to attempt this tomorrow (Tue) morning. SW discussed that currently without insurance, home infusion is not a possibility. SW discussed pt likely will discharge home tomorrow Mon once outpt infusion clinic secured and may be private pay or sliding fee scale etc depending on the infusion clinic. Since pt lives in [place], SW discussed could be [facility] or [facility] and both pt and SO would be agreeable with either depending if both can accept pt without insurance. SW faxed initial referral to [facility] in hopes they can review in the AM to determine if they can accept and msg already left with [facility]. Plan: SW to follow closely for plan of d/c tomorrow once outpt infusion clinic secured and pt's lack of insurance a barrier and Sig Other working hard to get pt enrolled in insurance but they are agreeable to payment plan if needed. KAYLEIGH Weston
--- NOTE | 2023-01-30 14:38 | P.PN_ITS ---
Subjective Subjective Date Patient Seen: 01/30/23 Interval history: Pt has no new complaints. Endorses numbness in feet (secondary to diabetic neuropathy). Exam Vital Signs (past 8 hours): - 01/30/23 11:38 Temperature 97.8 F Pulse Rate 81 Respiratory Rate 18 Blood Pressure 110/72 Pulse Oximetry 97 Oxygen Flow Rate 0 Oxygen Delivery Method Room Air Oxygen Flow Rate 0 Narrative Exam Narrative: Gen: alert, NAD, talking and resting comfortably Objective Labs 01/29/23 05:00 01/28/23 05:01 PFSH Social History household members: significant other Smoking Status: Former smoker alcohol intake: current Assessment & Plan Assessment & Plan narrative: # left great toe diabetic foot cellulitis with abscess s/p OR washout on 01/25 -foot x-ray shows cellulitis of left great toe with presence of gas -left foot MRI showed focal osteomyelitis of 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 Porfirio sorensen consulted and performed washout on 01/25 -wound culture growing Group B strep, stopped Vanc and changed zosyn to rocephin 2g daily -wound care consulted, Dr. Barfield saw and rec BID betadine and wrap in kerlix, f/u in wound clinic -took back to OR on 01/28 for further debridement and wound was healing well, no amputation of toe done -spoke with [facility] ID as patient will need 6 weeks of IV rocephin 2g daily to end on March 08, 2023 -PICC line placed on 01/28 -CREDIT REPRESENTATIVE arranging outpatient IV abx, via home infusion vs infusion center as patient does not currently have insurance # type 2 diabetes -previously poorly controlled as A1c greater than 14% -A1c 12% -continue metformin 500mg BID, started NPH 10 units BID, changed to lantus pen 25 units HS per pt preference -med-dose sliding scale insulin -diabetes education consulted and met with patient -will likely dc home on Lantus plus metformin -setup new PCP for patient Dr. Titus at [facility] for February 21 Code status is full code. COVID negative. DVT prophylaxis with SCDs. Proxy is partner Erinn. I have reviewed home meds and used all available resources to reconcile the home meds. Dispo: Home pending setup of outpatient IV abx for 6 weeks. Quality VTE Deep Vein Thrombosis/Pulmonary Embolism Present on Admission: No
[2023-01-30 16:04] VITALS: BP 117/78; PULSE 76; RESP 18; TEMP 36.8; O2SAT 97
[2023-01-30] MEDS: INSULIN GLARGINE 100 UNIT/ML 3ML PEN 25 UNIT SUBCUT (21:22)
[2023-01-30] MEDS: DOCUSATE 100 MG CAPSULE PO (21:24)
[2023-01-30 22:00] VITALS: BP 121/66; PULSE 66; RESP 14; TEMP 36.7; O2SAT 98
[2023-01-31] MEDS: ENOXAPARIN 40 MG/0.4 ML SYRINGE SUBCUT (08:26)
[2023-01-31] MEDS: METFORMIN HCL 500 MG TABLET PO (08:28)
[2023-01-31] MEDS: INSULIN LISPRO 100 UNIT/ML 3ML VIAL SUBCUT ×2 (08:34→12:24)
[2023-01-31 10:09] VITALS: BP 114/72; PULSE 80; RESP 20; TEMP 36.6; O2SAT 96
--- NOTE | 2023-01-31 11:09 | P.DS_ITS ---
History of Present Illness History of Present Illness Date Patient Seen: 01/31/23 Time Patient Seen: 10:59 Chief complaint: Swollen lt big toe after firewood dropped on it Narrative: Per admitting provider, Jim Blanco is a 58-year-old male with past medical history of poorly controlled type 2 diabetes, hypertension, and former smoker who presents for worsening infection of left great toe. Patient says he dropped a large log on his toe about a month ago and has had worsening infection and drainage in the toe ever since. He notes loss of sensation in his feet. He used to take metformin for his diabetes, and had lab work done last month which showed an A1c of >14% and his PCP put him back on metformin. He has never taken insulin. Patient denies CP, SOB, abd pain, diarrhea, fever, chills or rigors. Discharge Providers Provider Date of admission: 01/25/23 10:34 Discharge Date: 01/31/23 Primary care physician: Doctor Juan MD Consults: 01/25/23 15:45 Consult to Dietitian, Adult Routine Comment: Reason For Exam: A1c >14% 01/25/23 19:01 Consult to Discharge Planning Routine Comment: Consult to Physical Therapy Evaluate & Treat Comment: Physician Instructions: Evaluate and Treat 01/25/23 19:03 Consult to Wound Care Routine Comment: Consulting Provider: [facility] 01/25/23 19:06 Consult to Inpatient Wound Care Nurse Routine Comment: Reason for consultation: Left big toe infection 01/28/23 11:24 Consult to Discharge Planning Routine Comment: Consult to Physical Therapy Evaluate & Treat Comment: Physician Instructions: Evaluate and Treat Discharge provider: Hung Hill DO Summary Hospital Course Discharge Diagnosis: # left great toe diabetic foot cellulitis with abscess s/p OR washout on 01/25 # type 2 diabetes Hospital Course: This is a 58 year old male with poorly controlled DM who was admitted to the hospital with a 1st toe cellulitis, with abscess and corresponding osteomyelitis. Orthopedics perfromed initial I&D on 01/25 with takeback on 01/28. Orthopedics signed off a few days later with no further recommendations and outpatient follow up only as needed. Wound clinic evaluated the patient and recommended BID betadine and ambrosio/kerlix wrap and outpatient wound clinic follow up, which was set up. Infectious disease was consulted over the phone, recommended IV ceftriaxone for 6 weeks to end on 03/08/23. However, patient's social determinants of health are complicated by current lack of insurance. He w as unable to get home infusion therapy due to lack of insurance, and infusion clinic cost was around $500 per visit ($3500 per weak with total cost around $18,000). After careful discussion of the risks and benefits of IV therapy or discharge home with oral antibiotics, patient and spouse wished to discharge home on orals given prohibitive cost of IV therapy. We discussed risks including worsening infection given usual care is recommended to be IV therapy, with possibility for higher risk of amputation should the infection worsen. We also discussed there are some studies recently (SANDIE,2019) that suggest that oral antibiotics in appropriate patients can be non-inferior though this is not cur rently considered the standard of care. Based on his cultures with group B strep, amoxicillin 500 mg TID was prescribed at discharge. An alternative may be to have PICC line placed and start antibiotics once insurance is active (patient and spouse actively searching via private pay and VA benefits currently. His blood sugars were much improved with initiation of 25 U of lantus, and I recommend continuing this at discharge, along with his metformin. He was set up with PCP visit in about 3 weeks. Referral was made to infectious disease as well by one of the hospitalist providers. Care management assisted with getting him a wound care appointment as well to [facility]. Time Spent with Patient Time spent: Greater than 30 minutes Exam Vital Signs (past 8 hours): - 01/31/23 10:09 Temperature 98 F Pulse Rate 80 Respiratory Rate 20 Blood Pressure 114/72 Pulse Oximetry 96 Oxygen Flow Rate 0 Oxygen Delivery Method Room Air Oxygen Flow Rate 0 Narrative Exam Narrative: GEN: no acute distress HEENT: moist mucous membranes, PERRL NECK: trachea midline, no JVD CV: regular rate and rhythm, no murmurs PULM: clear bilaterally ABD: soft, nontender, nondistended, no organomegaly EXT: warm and well perfused with no edema, left foot wrapped in post-surgical ga uze with slight betadine staining on the toe. NEURO: awake, alert, oriented, no focal deficits Objective Labs 01/29/23 05:00 01/28/23 05:01 [facility] Social History household members: significant other Smoking Status: Former smoker alcohol intake: current Discharge Plan Discharge Plan Patient Disposition: Home Provider Discharge Comment: You were admitted to the hospital with an infection in your left foot, this improved with surgical debridement and antibiotics. We discussed risks and benefits of IV vs oral antibiotics, and you elected for discharge home on oral therapy given cost concerns at this time. Watch for worsening swelling of your joint, worsening wound, or fever at home. Please return to the ER if you are concerned. Sent insulin prescription to pharmacy as well. Continue to monitor blood sugars at least 3x a day for now, if glucose consistently good can reduce to in the morning. PCP follow up scheduled as noted below with Dr. Hoffman on 02/21, please bring a log of blood sugars to help adjust insulin therapies. Please reach out to the infectious disease clinic to confirm referral and follow up appointment. Continue dressing changes twice daily for now, would reach out to new PCP office to see about availability for same day or walk in appointments for suture removal in 10-14 days. Discharge orders & Medications Prescriptions: New insulin glargine [Lantus Solostar U-100 Insulin] 100 unit/mL (3 mL) Insulin Pen 25 unit SUBCUT BEDTIME 90 Days Qty: 24 0RF (DME) pen needle, diabetic [Pen Needle] 31 gauge x 3/16 needle See Rx Instructions .Route Qty: 100 0RF Rx Instructions: For use with insulin ped, once daily amoxicillin 500 mg tablet 500 mg PO TID 36 Days Qty: 108 0RF Continued metformin 500 mg tablet 500 mg PO BID Patient Comments: take 1 tablet by mouth every morning and evening with meals Medication counseling provided by Pharmacist: Yes Follow up/Referrals: Isabell Danielson MD [Non-Staff] - Fransico Hoffman [Non-Staff] - 02/21/23 4:40 pm (Appt:02/21 @ 4:40 (check in @ 4:25) with Dr Hoffman @ [facility] [place] [facility] [place] ) Miscellaneous,DoctorMD [Primary Care Provider] - Diet/Activity/Treatments Diet: Diet as Tolerated Activity: As tolerated Skin/Wound/Dressing Care Report to your healthcare provider any signs of infection, such as:: chills, fever, increased pain, unusual drainage and unusual redness Dressing: betadine twice daily, with gauze and kerlix. Visit Report/Discharge Packet Instructions: How to Take Care of Your Feet If You Have Diabetes, Complications of Type 2 Diabetes, Learn Your Diabetic ABCs, Type 2 Diabetes, Diabetes and Foot Care, Diabetic Nephropathy Stand Alone Forms: Patient Portal/API, Stroke Signs & Symptoms Discharge Data Primary Care Provider: Miscellaneous,Doctor Discharges patient from system. Discharge Date/Time: 01/31/23 15:00 Quality VTE Deep Vein Thrombosis/Pulmonary Embolism Present on Admission: No
--- NOTE | 2023-01-31 12:49 | CM.DPC ---
DCP Discharge Home SW spoke to RN at [facility] regarding pt's lack of insurance and need for Q24 IV-Abx and tentative out of pocket cost would be $335 nursing time, $120 for saline, plus cost of IV-Abx and then lab draws as needed. SW left ms for [facility] requesting call back. HAYLIE updated MD who also then spoke to pt and Sig Other bedside and pt decision is to d/c on oral abx and get on insurance and then follow up with Ortho, Wound Clinic and ID MD to get on IV-Abx as needed. Pt aware of the risks but cannot afford out of pocket expenses at this time. HAYLIE called [facility] health program analyst and updated and request they keep pt's information for likely future need. HAYLIE called Andie at [facility] with update on d/c plan for today and likely need for appointment to be scheduled for pt after d/c and requested she call pt and Sig Other to determine if pt willing to schedule yet at this time without insurance. Andie kindly agreed. Plan: Patient to d/c home on orals while working hard to get medical insurance and will f/u with Ortho, [facility], and ID MD Dr. Danielson after discharge today. Pt has the [facility] Application, Sig Other submitted pt's VA online application, and following up with director insurance. KAYLEIGH Weston
[2023-01-31] MEDS: cefTRIAXone 2,000 MG in SODIUM CHLORIDE 0.9% 100 ML 200 MG IV (13:59)
--- NOTE | 2023-01-31 15:19 | PC.NURSE ---
Addendum entered by Kimberly Rosen R.N. 01/31/23 15:20: Picc line taken out by Student Registered Nurse, he tolerated this well and cath tip was intact at the bottom of the line. Original Note: Patients insulin pen gone over with patient and dressing change gone over with . Patient discharged around 1500 to home.
== END 2023-01-31 15:00 | disposition home or self-care (01) | DRG 623 ==
LOC: ED 09:00 → AC 10:35
PROVIDERS: Orthopaedic Surgery; Admitting Provider Student in an Organized Health Care Education/Training Program; Emergency Provider Emergency Medicine; Referring Provider Emergency Medicine; Visit Provider Student in an Organized Health Care Education/Training Program
PROC: 0JBR0ZZ Excision of Left Foot Subcutaneous Tissue and Fascia, Open Approach (ICD-10-PCS; principal; 2023-01-25 16:30)
PROC: 0JDR0ZZ Extraction of Left Foot Subcutaneous Tissue and Fascia, Open Approach (ICD-10-PCS; principal; 2023-01-28 10:30)
DX: E11.628 Type 2 diabetes mellitus with other skin complications (principal); E11.52 Type 2 diabetes mellitus with diabetic peripheral angiopathy with gangrene; L02.612 Cutaneous abscess of left foot; I96 Gangrene, not elsewhere classified; M86.9 Osteomyelitis, unspecified; B95.1 Streptococcus, group B, as the cause of diseases classified elsewhere; E11.69 Type 2 diabetes mellitus with other specified complication; L03.032 Cellulitis of left toe; Z20.822 Contact with and (suspected) exposure to COVID-19; Z87.891 Personal history of nicotine dependence; Z79.84 Long term (current) use of oral hypoglycemic drugs; Z23 Encounter for immunization
CPT/HCPCS: 36415; 36573; 73630; 73720; 80048; 80053; 82962; 83036; 83735; 84145; 85025; 85027; 85651; 86140; 87040; 87070; 87075; 87077; 87147; 87205; 87635; 87797; 90471; 97116; 97161; 99232; 99284; C9803; 90715; C9113; J0171; J0696; J1642; J1650; J1815; J2250; J2543; J2704; J3010

== ENCOUNTER → 2023-02-05 12:39 | Outpatient (CLI) | payer OTHER, MEDICAID, SELFPAY ==
[2023-01-25 10:41] VITALS: BMI 25.4
[2023-02-05 14:15] LABS: Clostridium Difficile Tox PCR Negative for C. diff (Negative)
== END ==
PROVIDERS: PCP Family Medicine; Referring Provider Internal Medicine Infectious Disease; Visit Provider Internal Medicine Infectious Disease
DX: R19.7 Diarrhea, unspecified (principal)
CPT/HCPCS: 87493

== ENCOUNTER → 2023-02-07 12:39 | Outpatient (CLI) | payer OTHER, MEDICAID, SELFPAY ==
[2023-01-25 10:41] VITALS: BMI 25.4
[2023-02-07 14:09] LABS: Add Manual Diff / Slide Review NO; Basophils Absolute Auto 100 /uL (0-100); Basophils Percent Auto 0.9 % (0-2); Eosinophils Absolute Auto 100 /uL (0-450); Hematocrit 42.5 % (41-53); Hemoglobin 14.6 g/dL (13.5-17.5); Lymphocytes Absolute Auto 2400 /uL (1100-4500); Lymphocytes Percent Auto 25.7 % (25-40); Mean Corpuscular HGB Conc 34.3 % (30-36); Mean Corpuscular Volume 81.6 fL (80-100); Monocytes Absolute Auto 700 /uL (0-900); Monocytes Percent Auto 7.5 % (3-14); Neutrophils Absolute Auto 6100 /uL (1500-7000); Neutrophils Percent Auto 64.9 % (50-75); Platelet Count 455 X10^3/uL (150-400); Red Cell Distribution Width 13.2 % (11.6-14.8); White Blood Cell Count 9.4 X10^3/uL (4.5-11.0)
[2023-02-07 14:28] LABS: Alanine Aminotransferase 31 IU/L (<50); Albumin 4.2 g/dL (3.5-5.0); Albumin Globulin Ratio 1.4 (1.0-2.8); Alkaline Phosphatase 223 U/L (38-126); Aspartate Aminotransferase 25 IU/L (17-59); BUN Creatinine Ratio 19.6 (6-22); Bilirubin Total 0.5 mg/dL (0.2-1.3); Blood Urea Nitrogen 18 mg/dL (9-20); C-Reactive Protein Quant 0.6 mg/dL (<1.0); Calcium 10.6 mg/dL (8.4-10.2); Carbon Dioxide 22 mmol/L (22-32); Chloride 100 mmol/L (98-107); Estimated Glomerular Filt Rate > 60 mL/min (>60); Glucose 150 mg/dL (80-110); HEMOLYSIS < 15 (0-50); Potassium 5.1 mmol/L (3.4-5.1); Sodium 131 mmol/L (137-145); Total Protein 7.2 g/dL (6.3-8.2)
== END ==
PROVIDERS: PCP Family Medicine; Referring Provider Internal Medicine Infectious Disease; Visit Provider Internal Medicine Infectious Disease
DX: M86.9 Osteomyelitis, unspecified (principal)
CPT/HCPCS: 36415; 80053; 85025; 86140; 87040

== ENCOUNTER 2023-02-11 11:37 | Day surgery (SDC) | payer OTHER, MEDICAID, SELFPAY ==
[2023-01-25 10:41] VITALS: BMI 25.4
[2023-02-10 14:20] VITALS: BMI 25.0
--- NOTE | 2023-02-11 | PATH_ITS ---
[facility] Accession Number: [id number] No. of containers..01 Tissue . 01 Material submitted: . toe - LEFT GREAT TOE . 01 Diagnosis: Left Great Toe, Amputation: Skin and soft tissue with ulcer. Underlying bone with evidence of acute osteomyelitis. Soft tissue and articular surface margins are involved by acute inflammation. MRV 02/16/2023 1523 Local . 01 Electronically signed: . Bhakti Frank MD, Pathologist NPI- [id number] . 01 Gross description: . The specimen is received in formalin labeled with the patient's name, , and left great toe, and consists of a presumably disarticulated digit measuring 4.2 cm in length by 3.5 cm in average diameter. The cutaneous surface is ibarra, wrinkled, and significant for a large ulcerated lesion on the medial aspect with soft tissue visible at the base of the ulceration and measuring 2.5 x 1.4 cm. The lesion grossly approaches the soft tissue margin. The remaining cutaneous surface has a friable cutaneous surface and a ibarra thickened nail bed. The soft tissue margin is inked blue while the possible articular surface is inked orange. Sectioning reveals yellow to ibarra soft tissue with hard friable osseous tissue that is an easy dissection with a scalpel. Gut Dropper sections are submitted as follows: A1-A2: Soft tissue margin en face. A3: Possible articular surface en face. A4: Partial cross-section to include lesion and underlying bone. Submitted for decalcification. ([id number]) /MRV 02/15/2023 1853 Local . 01 Pathologist provided ICD-10: M86.9, E11.628 . 01 CPT . 542011, 287418 Specimen Comment: A courtesy copy of this report has been sent to [phone] Performed at: 01 [facility] [address] [facility], [place], [place] [id number] MD Gary Dunn MD Phone: [phone]
--- NOTE | 2023-02-11 | DI.RAD.S_ITS ---
PROCEDURE: XR TOE LT MIN 2V INDICATIONS: BIG TOE AMPUTATION TECHNIQUE: Single intraoperative fluoroscopic views of the 1st toe(s) acquired. COMPARISON: [facility], CR, XR FOOT 3 VIEWS WEIGHT BEARING LEFT, 02/10/2023, 10:08. [facility], CR, XR TOE LT MIN 2V, 01/25/2023, 9:19. FINDINGS: Intraoperative fluoroscopic image of great toe shows amputation of great toe at the level of mid 1st proximal phalangeal shaft. IMPRESSION: Fluoro guidance was provided intraoperatively for amputation of great toe as above. Dictated by: Francisco Xie M.D. on 02/11/2023 at 16:14 Approved by: Francisco Xie M.D. on 02/11/2023 at 16:15
[2023-02-11 12:06] VITALS: BMI 25.0
[2023-02-11 12:13] VITALS: BP 119/70; PULSE 77; RESP 17; TEMP 36.3; O2SAT 99
[2023-02-11] MEDS: LACTATED RINGERS 1,000 ML 42 ML IV (12:22)
[2023-02-11] MEDS: ACETAMINOPHEN 325 MG TABLET 975 MG PO (12:22)
--- NOTE | 2023-02-11 14:21 | PM.PREOP ---
Pre-operative Note Interval Note History & Physical reviewed/Exam performed by Physician: Yes Changes to H&P: No
[2023-02-11] MEDS: BUPIVACAINE 0.25% (PF) 30 ML, EPINEPHrine 0.15 MG INJ (15:19)
--- NOTE | 2023-02-11 15:31 | SUR.OPER ---
Supine on padded OR bed, head on pillow, arms secured on padded arm boards at <90 degrees abduction, legs uncrossed, safety belt at thigh, tape over blanket over lower legs.
[2023-02-11 15:53] VITALS: BP 121/81; PULSE 76; RESP 12; TEMP 36.1; O2SAT 97
[2023-02-11 15:58] VITALS: BP 123/83; PULSE 75; RESP 12; O2SAT 98
[2023-02-11 16:03] VITALS: BP 129/88; PULSE 74; RESP 12; O2SAT 98
[2023-02-11 16:08] VITALS: BP 126/87; PULSE 72; RESP 14; O2SAT 98
[2023-02-11 16:13] VITALS: BP 135/88; PULSE 69; RESP 12; O2SAT 98
--- NOTE | 2023-02-11 18:39 | P.OP_ITS ---
Operative Date/Time/Diagnoses Date of procedure: 02/11/23 Time of procedure: 18:39 Pre-op diagnosis: Diabetic infection left foot Hallux osteomyelitis left great toe Post-op diagnosis: same Procedure & Clinicians Procedure: Partial amputation left great toe CPT code 76130 - TA Manual preparation and insertion of the drug delivery devices CPT code 52048 This procedure was performed with a modifier #58 for a more extensive procedure. Due to ongoing infection and necrosis patient required a partial toe amputation Same procedure as scheduled: Yes Indications: The patient is a 58-year-old male with a left great toe diabetic infection osteomyelitis and osteonecrosis. He is failed 2 irrigation debridements by another orthopedist. He was seen by infectious disease indicated for IV antibiotics but has been unable to obtain these. He has been on oral antibiotics. His progressive necrosis and osteonecrosis. He is indicated for more extensive procedure for partial left great toe amputation. The risks and benefits of the procedure have been discussed with the patient and given the opportunity to ask questions. The risks of surgery include but are not limited to infection, malunion, nonunion, persistence of pain, damage to nerves and blood vessels, posttraumatic arthritis, DVT, PE, cardiopulmonary complications and . The patient expressed a thorough understanding of the risks and benefits of surgery and has elected to proceed. Consent was signed. Surgeon: Viki iLcona Click Yes if Unassisted: Yes Anesthesia Type: General and Local Operative Notes Findings: Osteonecrosis, necrotic soft tissue and flexor hallucis longus. Exposure of the distal interphalangeal joint with appearance of chronic septic arthritis. Full- thickness wound with necrotic subcutaneous tissue tracking down to bone. Healthy-appearing bone at site of amputation through proximal phalanx. No deep abscess or proximal tracking abscess. Closure Type: primary Specimen(s): other (Great toe hallux sent for pathology. Distal proximal phalanx bone sent for culture) Estimated Blood Loss (mL): 10 Blood products transfused: none Tourniquet time (min): 30 Procedure in detail: Patient is seen in the preoperative area the site of surgery marked informed consent confirmed. The patient was brought back to the operating room by the anesthesia team positioned supine on operative table. General anesthetic was administered. All bony prominences were well padded. Well-padded thigh tourniquet was placed. Attention was turned to the left great toe. This was prepped and draped in the standard sterile fashion. A formal time-out procedure was performed confirming the patient's side and site of surgery administration of appropriate preoperative antibiotic. The patient also been on scheduled oral antibiotics at home. All were in agreement. Manual preparation of drug delivery device beads. The 3 cc Stimulan bead package was opened up. The bead powder and 500 mg of vancomycin were mixed together along with the liquid from the powder packet and the small tray was filled with the mixture to create the small beads. These were allowed to harden for 2-3 minutes and set aside for placement at the end of the case. Attention turned to the left great toe gravity exsanguination was used and tourniquet raised to 250 mmHg. The remaining few sutures in the previous wound were opened. The amputation path was drawn on the skin and the amputation was taken down through the IP joint this was sent for pathology at this point necrotic tissue along the medial open wound was debrided as well as a necrotic FHL tendon was cut and allowed to retract. This was carefully cut back the healthy part of the tendon. At this point the proximal phalanx was exposed. The distal end of the proximal phalanx was dusky and ibrahim consistent with osteomyelitis. There was also a cortical defect in this area consistent with osteomyelitis. The TPS saw was used to transect the proximal phalanx through the base this was done under fluoroscopic guidance. Once this was completed the wound was thoroughly irrigated with several L of fluid the new clean drapes were placed down and gloves were changed and instruments were changed. This point final debridements of the wound were completed making sure there was a clean wound bed. A rasp was used to round off the proximal phalanx bone. 2-0 PDS was used for closure around the edges to create a pocket and the Stimulan beads were then placed into the wound and packed in place. The wound was closed with 2-0 PDS 4-0 Monocryl and 3-0 nylon suture. Local anesthetic 0.25% Marcaine with epinephrine was used. Prior to final closure the tourniquet was released and hemostasis achieved. Sterile dressing was placed with Xeroform gauze, Amina wrap and an Luiz wrap. The patient was woken from anesthesia and taken to recovery unit in good condition there were no immediate complications with this procedure. All counts were correct. Complications: none Post-operative Condition: stable Disposition: PACU Plan for aftercare: Weightbear as tolerated in the postoperative shoe. Sutures remain in place 4- 6 weeks. Keep incision dry. Patient has dissolvable antibiotic beads. Discussed that these will dissolve over weeks. Was given a prescription for linezolid which he will maintain. He will follow up in 2 weeks for a wound check.
== END 2023-02-11 16:36 | disposition home or self-care (01) ==
PROVIDERS: PCP Family Medicine; Referring Provider Orthopaedic Surgery Foot and Ankle Surgery; Visit Provider Orthopaedic Surgery Foot and Ankle Surgery
PROC: (CPT 28825; principal; 2023-02-11 13:00)
DX: E11.52 Type 2 diabetes mellitus with diabetic peripheral angiopathy with gangrene (principal); M90.572 Osteonecrosis in diseases classified elsewhere, left ankle and foot; M86.9 Osteomyelitis, unspecified; E11.65 Type 2 diabetes mellitus with hyperglycemia; I96 Gangrene, not elsewhere classified
CPT/HCPCS: 28825; 73660; 76000; 87070; 87075; 87205; J0171; J2704; J3010

== ENCOUNTER → 2023-02-21 15:37 | Outpatient (CLI) | payer OTHER, MEDICAID, SELFPAY ==
[2023-01-25 10:41] VITALS: BMI 25.4
== END ==
PROVIDERS: PCP Family Medicine; Referring Provider Internal Medicine Infectious Disease; Visit Provider Internal Medicine Infectious Disease
DX: M86.9 Osteomyelitis, unspecified (principal)
CPT/HCPCS: 87493

== ENCOUNTER → 2024-03-30 07:13 | Outpatient (CLI) | payer OTHER, SELFPAY ==
[2023-01-25 10:41] VITALS: BMI 25.4
--- NOTE | 2024-03-30 07:15 | DI.CT.S_ITS ---
PROCEDURE: CT CHEST WO CON INDICATIONS: NICOTINE DEPENDENCE TECHNIQUE: Noncontrast 5 mm thick sections acquired from the pulmonary apices to the posterior costophrenic angles. 1 mm lung window, 5 mm thick coronal and sagittal and 7 mm axial MIP reformats were then acquired. For radiation dose reduction, the following was used: automated exposure control, adjustment of mA and/or kV according to patient size. COMPARISON: None. FINDINGS: Image quality: Diagnostic. Lower Neck: No enlarged lymph nodes. Thyroid: No thyroid nodules which require sonographic follow up, per consensus guidelines. Axillae: No enlarged lymph nodes. Chest Wall: Unremarkable. Bones: Unremarkable. Lungs and Pleura: No pneumothorax or pleural effusions. No consolidation. A few scattered solid pulmonary nodules with the largest in the right upper lobe measuring 4-5 mm (3/115, MIP image 60). Heart: Heart size is normal. No pericardial effusion. Thoracic Vessels: The aorta and pulmonary arteries demonstrate normal size. Mediastinum and Shayy: No enlarged lymph nodes. Esophagus: No wall thickening. No hiatal hernia. Upper Abdomen: Visualized upper abdomen solid organs and bowel loops appear normal. IMPRESSION: Scattered sub 6 mm pulmonary nodules. If patient is high risk for lung malignancy, consider follow-up CT chest in 12 months to demonstrate Stability per Fleischner society guidelines. Approved by: Sheyla Schaeffer M.D.,Ph.D. on 03/30/2024 at 20:57
--- NOTE | 2024-03-30 16:34 | DI.US.S_ITS ---
PROCEDURE: US ABDOMEN LIMITED INDICATIONS: NICOTINE DEPENDENCE TECHNIQUE: Real-time scanning was performed of the abdominal and retroperitoneal organs, with image documentation. COMPARISON: None. FINDINGS: Liver: Liver is normal in size and homogeneous in echotexture. Gallbladder: No gallstones. No wall thickening. No pericholecystic edema. Negative sonographic Miranda's sign. Biliary ducts: Intrahepatic bile ducts are non-dilated. Extrahepatic bile duct caliber measures 3 mm. Normal is 6-7 mm or less in diameter, or 10 mm or less post-cholecystectomy. Pancreas: Visualized portions of the pancreas are sonographically normal. Miscellaneous: No free abdominal fluid. IMPRESSION: No findings to explain the patient's elevated LFTs. No gallbladder pathology. Normal echotexture and echogenicity of the liver. Dictated by: Ariel Ly M.D. on 03/31/2024 at 14:03 Approved by: Ariel Ly M.D. on 03/31/2024 at 14:04
== END ==
PROVIDERS: PCP Family Medicine; Referring Provider Nurse Practitioner Family; Visit Provider Nurse Practitioner Family
DX: F17.211 Nicotine dependence, cigarettes, in remission (principal); R94.5 Abnormal results of liver function studies; R91.8 Other nonspecific abnormal finding of lung field
CPT/HCPCS: 71250; 76705